=== PATIENT | male | born 1955 | race Caucasian/White ===

== ENCOUNTER 2019-08-26 11:51 | Inpatient (IN) | payer OTHER ==
[2019-08-26] MEDS ORDERED: Sodium Chloride 0.9% 10 ML Syringe FLUSH PRN ×3 (11:55→16:04)
[2019-08-26] MEDS ORDERED: Ondansetron 4 MG/2 ML SDV IVPUSH ONE (11:56)
[2019-08-26] MEDS ORDERED: Pantoprazole 40 MG Vial IVPUSH ONE (11:56)
[2019-08-26] MEDS ORDERED: Sodium Chloride 0.9% 1,000 ML IV SCH (12:00)
--- NOTE | 2019-08-26 12:03 | EDM.PDOC ---
ED HPI GENERAL MEDICAL PROBLEM - General Chief Complaint: Gastrointestinal Problem Stated Complaint: CHEST PAIN Time Seen by Provider: 08/26/19 11:54 Source of Information: Reports: Patient History Limitations: Reports: No Limitations - History of Present Illness INITIAL COMMENTS - FREE TEXT/NARRATIVE: Dashawn is a 64 year old male, hx of HTN, presents to the ED today with c/o vomiting and a burning sensation in his chest since last night, symptoms have continued this morning, now patient feels light headed. Denies any diarrhea or fever, passed a normal BM yesterday but complaints of feeling "constipated". No hx of abdominal surgery, distended on exam. Patient denies any heart hx other than his HTN. Patient has not taken any medications for his symptoms. He denies anything really making his symptoms better or worse. Patient denies any hematemesis. Patient denies any chest pressure or pain. Onset: Gradual (Last night around 1900) Lower Abdomen Pain Score (Numeric/FACES): 8 - Related Data Allergies Allergy/AdvReac Type Severity Reaction Status Date / Time No Known Allergies Allergy Verified 08/26/19 11:53 Home Meds: Home Meds Allopurinol [Zyloprim] 100 mg PO DAILY 08/26/19 [History] Levothyroxine 112 mcg PO ACBREAKFAST 08/26/19 [History] Lisinopril 5 mg PO DAILY 08/26/19 [History] metFORMIN [Glucophage] 500 mg PO BIDMEALS 08/26/19 [History] ED ROS GENERAL - Review of Systems Review Of Systems: ROS reveals no pertinent complaints other than HPI. ED EXAM, GI/ABD - Physical Exam Exam: See Below Exam Limited By: No Limitations General Appearance: Alert, Mild Distress, Obese Eyes: Bilateral: EOMI Nose: Normal Inspection Throat/Mouth: Normal Oropharynx Head: Atraumatic Neck: Supple Cardiovascular: Normal Peripheral Pulses, Regular Rate, Rhythm GI/Abdominal Exam: Normal Bowel Sounds, Non-Tender, Distended Back Exam: Normal Inspection Extremities: Normal Inspection Neurological: Alert, Oriented, CN II-XII Intact Skin Exam: Pallor Lymphatic: No Adenopathy EKG INTERPRETATION EKG Date: 08/26/19 Time: 12:03 Rhythm: NSR [place]: Normal P-Wave: Present QRS: Normal ST-T: Normal QT: Normal Comparison: NA - No Prior EKG Course - Vital Signs Last Recorded V/S: Last Vital Signs Temp 36.2 C 08/26/19 12:18 Pulse 100 08/26/19 12:52 Resp 20 08/26/19 12:52 BP 181/106 H 08/26/19 12:52 Pulse Ox 97 08/26/19 12:52 Dashawn is a 64 year old male, hx of HTN, Thyroid disease, gout, diabetes, presents to the ED today with c/o chest burning sensation and vomiting. Please refer to HPI and focused exam. Patient arrives here mildly hypertensive and borderline tachycardic. Patient is afebrile. Patient has abdominal distention on exam with tympany, abdomen non tender, not soft. Concern for obstruction, ? constipation related, patient denies any abdominal surgical hx. Informed nurse he had four "normal BM's" this morning. Patient overall poor historian. PIV established, patient given IV Zofran with minimal relief, NS started. Blood work with leukocytosis of 15.3 with left shift and GAP of 18.2. ALT and AST mildly elevated at 55 and 82, CRP elevated at 0.97. Lactic acid significantly elevated at 4.2, patient prophylactically started on Zosyn. Procalcitonin pending. Given burning sensation in chest, EKG and troponin obtained, both of which are unremarkable. Lipase WNL. CT of abdomen and pelvis obtained which does show an obstruction. [facility], [facility] with [facility], they are unable to accept patient for transfer due to lack of bed availability. NG tube placed by nursing staff, immediately 950 out of stool colored gastric secretions, patient feeling better, still draining, patient sleeping after some IV Ativan to help with ongoing nausea and NG tube placement. Dr. Burch, surgeon, notified of patient, will consult. I discussed patient with Dr. Mejia, he has accepted patient for admission. Patient updated on plan of care and is agreeable. - Orders/Labs/Meds Orders: Active Orders 24 hr Category Date Time Status EKG Documentation Completion [RC] ASDIRECTED Care 08/26/19 11:54 Active Peripheral IV Care [RC] . DIRECTED Care 08/26/19 11:55 Active PROCALCITONIN [CHEM] Stat Lab 08/26/19 14:14 Ordered Piperacillin/Tazobactam/Dext [Zosyn in Dextrose Iso- Med 08/26/19 14:00 Active Osmotic] 4.5 gm Premix Bag 1 bag IV ONETIME Sodium Chloride 0.9% [Normal Saline] 1,000 ml Med 08/26/19 12:00 Active IV ASDIRECTED Sodium Chloride 0.9% [Saline Flush] Med 08/26/19 11:55 Active 10 ml FLUSH ASDIRECTED PRN Sodium Chloride 0.9% [Saline Flush] Med 08/26/19 12:20 Active 10 ml FLUSH ONETIME PRN NG [Nasogastric Orogastric Tube Insertion] [OM.PC] Oth 08/26/19 13:09 Ordered Routine Peripheral IV Insertion Adult [OM.PC] Routine Oth 08/26/19 11:55 Ordered EKG 12 Lead [EK] Stat Ther 08/26/19 11:54 Ordered Medication Orders Sodium Chloride (Normal Saline) 1,000 mls @ 150 mls/hr IV ASDIRECTED HAWA Last Admin: 08/26/19 12:16 Dose: 150 mls/hr Piperacillin/Tazobactam/ (Dextrose 4.5 gm/ Premix) 100 mls @ 100 mls/hr IV ONETIME ONE Stop: 08/26/19 14:59 Last Admin: 08/26/19 13:58 Dose: 100 mls/hr Sodium Chloride (Saline Flush) 10 ml FLUSH ASDIRECTED PRN PRN Reason: Keep Vein Open Last Admin: 08/26/19 12:17 Dose: 10 ml Sodium Chloride (Saline Flush) 10 ml FLUSH ONETIME PRN PRN Reason: PER RADIOLOGY PROTOCOL Last Admin: 08/26/19 12:41 Dose: 10 ml Labs: Laboratory Tests 08/26/19 08/26/19 08/26/19 Range/Units 12:06 12:06 12:06 WBC 15.3 H (4.5-11.0) K/uL RBC 5.55 (4.30-5.90) M/uL Hgb 16.2 H (12.0-15.0) g/dL Hct 49.4 (40.0-54.0) % MCV 89 (80-98) fL MCH 29 (27-31) pg MCHC 33 (32-36) % Plt Count 437 H (150-400) K/uL Neut % (Auto) 87 H (36-66) % Lymph % (Auto) 8 L (24-44) % [place] % (Auto) 5 (2-6) % Eos % (Auto) 0 L (2-4) % Baso % (Auto) 0 (0-1) % Sodium 137 L (140-148) mmol/L Potassium 4.2 (3.6-5.2) mmol/L Chloride 98 L (100-108) mmol/L Carbon Dioxide 25 (21-32) mmol/L Anion Gap 18.2 H (5.0-14.0) mmol/L BUN 18 (7-18) mg/dL Creatinine 1.2 (0.8-1.3) mg/dL Est Cr Clr Drug Dosing 64.21 mL/min Estimated GFR (MDRD) > 60 (>60) Glucose 301 H (74-106) mg/dL Lactic Acid (0.4-2.0) mmol/L Calcium 9.4 (8.5-10.1) mg/dL Total Bilirubin 0.6 (0.2-1.0) mg/dL AST 55 H (15-37) U/L ALT 82 H (12-78) U/L Alkaline Phosphatase 105 (46-116) U/L Troponin I < 0.017 (0.000-0.056) ng/mL C-Reactive Protein 0.97 H (0.0-0.3) mg/dL Total Protein 7.8 (6.4-8.2) g/dL Albumin 3.9 (3.4-5.0) g/dL Globulin 3.9 H (2.3-3.5) g/dL Albumin/Globulin Ratio 1.0 L (1.2-2.2) Lipase 138 (73-393) U/L 08/26/19 Range/Units 12:36 WBC (4.5-11.0) K/uL RBC (4.30-5.90) M/uL Hgb (12.0-15.0) g/dL Hct (40.0-54.0) % MCV (80-98) fL MCH (27-31) pg MCHC (32-36) % Plt Count (150-400) K/uL Neut % (Auto) (36-66) % Lymph % (Auto) (24-44) % [place] % (Auto) (2-6) % Eos % (Auto) (2-4) % Baso % (Auto) (0-1) % Sodium (140-148) mmol/L Potassium (3.6-5.2) mmol/L Chloride (100-108) mmol/L Carbon Dioxide (21-32) mmol/L Anion Gap (5.0-14.0) mmol/L BUN (7-18) mg/dL Creatinine (0.8-1.3) mg/dL Est Cr Clr Drug Dosing mL/min Estimated GFR (MDRD) (>60) Glucose (74-106) mg/dL Lactic Acid 4.3 H (0.4-2.0) mmol/L Calcium (8.5-10.1) mg/dL Total Bilirubin (0.2-1.0) mg/dL AST (15-37) U/L ALT (12-78) U/L Alkaline Phosphatase (46-116) U/L Troponin I (0.000-0.056) ng/mL C-Reactive Protein (0.0-0.3) mg/dL Total Protein (6.4-8.2) g/dL Albumin (3.4-5.0) g/dL Globulin (2.3-3.5) g/dL Albumin/Globulin Ratio (1.2-2.2) Lipase (73-393) U/L Meds: Medications Generic Name Dose Route Start Last Admin Trade Name Freq PRN Reason Stop Dose Admin Sodium Chloride 1,000 mls @ 150 mls/hr 08/26/19 12:00 08/26/19 12:16 Normal Saline IV 150 mls/hr ASDIRECTED HAWA Administration Piperacillin/Tazobactam/ 100 mls @ 100 mls/hr 08/26/19 14:00 08/26/19 13:58 Dextrose 4.5 gm/ Premix IV 08/26/19 14:59 100 mls/hr ONETIME ONE Administration Sodium Chloride 10 ml 08/26/19 11:55 08/26/19 12:17 Saline Flush FLUSH 10 ml ASDIRECTED PRN Administration Keep Vein Open Sodium Chloride 10 ml 08/26/19 12:20 08/26/19 12:41 Saline Flush FLUSH 10 ml ONETIME PRN Administration PER RADIOLOGY PROTOCOL Discontinued Medications Generic Name Dose Route Start Last Admin Trade Name Freq PRN Reason Stop Dose Admin Sodium Chloride 85 mls @ 3 mls/sec 08/26/19 12:20 08/26/19 12:41 Normal Saline IV 08/26/19 12:21 3 mls/sec ONETIME ONE Administration Sodium Chloride 1,000 mls @ 999 mls/hr 08/26/19 13:08 08/26/19 13:13 Normal Saline IV 08/26/19 14:08 999 mls/hr .BOLUS ONE Administration Iopamidol 150 ml 08/26/19 12:20 08/26/19 12:41 Isovue-300 (61%) IV 08/26/19 12:21 150 ml ONETIME ONE Administration Lorazepam 1 mg 08/26/19 13:01 08/26/19 13:09 Ativan IVPUSH 08/26/19 13:02 1 mg ONETIME ONE Administration Ondansetron HCl 4 mg 08/26/19 11:56 08/26/19 12:13 Zofran IVPUSH 08/26/19 11:57 4 mg ONETIME ONE Administration Pantoprazole Sodium 40 mg 08/26/19 11:56 08/26/19 12:15 Protonix Iv IVPUSH 08/26/19 11:57 40 mg ONETIME ONE Administration Departure - Departure Time of Disposition: 14:30 Disposition: Admitted As Inpatient 66 Condition: Fair Clinical Impression: Small bowel obstruction - Discharge Information Referrals: PCP,None [Primary Care Provider] - Forms: ED Department Discharge - My Orders Last 24 Hours: My Active Orders 08/26/19 11:54 EKG Documentation Completion [RC] ASDIRECTED EKG 12 Lead [EK] Stat 08/26/19 11:55 Peripheral IV Care [RC] . DIRECTED Sodium Chloride 0.9% [Saline Flush] 10 ml FLUSH ASDIRECTED PRN Peripheral IV Insertion Adult [OM.PC] Routine 08/26/19 12:00 Sodium Chloride 0.9% [Normal Saline] 1,000 ml IV ASDIRECTED 08/26/19 12:20 Sodium Chloride 0.9% [Saline Flush] 10 ml FLUSH ONETIME PRN 08/26/19 13:09 NG [Nasogastric Orogastric Tube Insertion] [OM.PC] Routine 08/26/19 14:00 Piperacillin/Tazobactam/Dext [Zosyn in Dextrose Iso-Osmotic] 4.5 gm Premix Bag 1 bag IV ONETIME 08/26/19 14:14 PROCALCITONIN [CHEM] Stat - Assessment/Plan Last 24 Hours: My Active Orders 08/26/19 11:54 EKG Documentation Completion [RC] ASDIRECTED EKG 12 Lead [EK] Stat 08/26/19 11:55 Peripheral IV Care [RC] . DIRECTED Sodium Chloride 0.9% [Saline Flush] 10 ml FLUSH ASDIRECTED PRN Peripheral IV Insertion Adult [OM.PC] Routine 08/26/19 12:00 Sodium Chloride 0.9% [Normal Saline] 1,000 ml IV ASDIRECTED 08/26/19 12:20 Sodium Chloride 0.9% [Saline Flush] 10 ml FLUSH ONETIME PRN 08/26/19 13:09 NG [Nasogastric Orogastric Tube Insertion] [OM.PC] Routine 08/26/19 14:00 Piperacillin/Tazobactam/Dext [Zosyn in Dextrose Iso-Osmotic] 4.5 gm Premix Bag 1 bag IV ONETIME 08/26/19 14:14 PROCALCITONIN [CHEM] Stat
[2019-08-26] MEDS ORDERED: Iopamidol 500 ML BOTTLE IV ONE (12:20)
[2019-08-26] MEDS ORDERED: LORazepam 2 MG/ML SDV IVPUSH ONE (13:01)
[2019-08-26] MEDS ORDERED: Sodium Chloride 0.9% 1,000 ML IV ONE (13:08)
[2019-08-26] MEDS ORDERED: Piperacillin/Tazobactam 4.5 GM in Sodium Chloride 0.9% 100 ML IV ONE (13:08)
--- NOTE | 2019-08-26 13:27 | CRLCT ---
INDICATION: Abdominal distention and vomiting TECHNIQUE: CT abdomen and pelvis acquired with 150 cc Isovue 300 IV contrast. COMPARISON: None FINDINGS: Lower chest: Small hiatal hernia. Circumferential wall thickening of the esophagus just proximal to the hernia. Liver: Hepatic steatosis. Spleen: Unremarkable. Pancreas: Unremarkable. Gallbladder and bile ducts: Unremarkable. Adrenal glands: Unremarkable. Kidneys: Unremarkable. GI tract: Moderate distention of the stomach with fluid. Multiple fluid and air-filled loops of small bowel reach a maximum diameter of 3.9 cm. Small bowel feces sign seen immediately to a transition point in the right lower quadrant, image 28-33 series 3. Small amount of free fluid in the mesentery. No extraluminal air or pneumatosis. The appendix is not visualized. Mild colonic diverticulosis. Vascular structures: Mild atherosclerotic disease with 3.2 x 3.0 cm infrarenal abdominal aortic aneurysm. Lymph nodes: Unremarkable. Miscellaneous: Small fat containing left inguinal hernia. No free air or significant free fluid. Pelvic Organs: Unremarkable. Bones: Unremarkable for age. IMPRESSION: Small-bowel obstruction with transition point in the right lower quadrant. Circumferential wall thickening of the esophagus just proximal to a small hiatal hernia. Consider EGD for further evaluation. Hepatic steatosis. 3.2 cm infrarenal abdominal aortic aneurysm. Mild colonic diverticulosis. Please note that all CT scans at this facility use dose modulation, iterative reconstruction, and/or weight-based dosing when appropriate to reduce radiation dose to as low as reasonably achievable. Dictated by Steffi Cleveland MD @ Aug 26 2019 1:13PM Signed by Dr. Steffi [place] @ Aug 26 2019 1:25PM
[2019-08-26] MEDS ORDERED: Piperacillin/Tazobactam/Dext 4.5 GM in Premix Bag 1 BAG IV ONE (14:00)
--- NOTE | 2019-08-26 15:45 | PCM.HP.2 ---
H&P History of Present Illness - General Date of Service: 08/26/19 Admit Problem/Dx: Admission Diagnosis/Problem Admission Diagnosis/Problem Nausea and vomiting Source of Information: Patient, Provider, RN Notes Reviewed History Limitations: Reports: No Limitations - History of Present Illness Initial Comments - Free Text/Narative: Mr. Grimes is a 64-year-old gentleman who was admitted through the emergency department with lower chest abdominal pain, nausea, and vomiting, secondary to small bowel obstruction. He began to feel ill 2 days prior to admission with pain, nausea, and vomiting. Symptoms progressed over the next 2 days, with minimal oral intake. He presented to the emergency department for further evaluation. White blood cell count is elevated and he has no elevation in lactic acid level. CT scan of the abdomen pelvis shows multiple air-fluid levels , small bowel obstruction with a transition point in the right lower quadrant. He has never had difficulty with bowel obstruction in the past and denies any previous history of abdominal surgery. He denies alcohol use but does report daily marijuana use. Lower Abdomen Pain Score (Numeric/FACES): 8 - Related Data Allergies/Adverse Reactions: Allergies Allergy/AdvReac Type Severity Reaction Status Date / Time No Known Allergies Allergy Verified 08/26/19 11:53 Home Medications: Home Meds Allopurinol [Zyloprim] 100 mg PO DAILY 08/26/19 [History] Levothyroxine 112 mcg PO ACBREAKFAST 08/26/19 [History] Lisinopril 5 mg PO DAILY 08/26/19 [History] metFORMIN [Glucophage] 500 mg PO BIDMEALS 08/26/19 [History] Past Medical History HEENT History: Reports: Impaired Vision Cardiovascular History: Reports: Hypertension Respiratory History: Reports: Asthma, Other (See Below) Other Respiratory History: uses inhaler unsure why Genitourinary History: Reports: Other (See Below) Other Genitourinary History: urgency Musculoskeletal History: Reports: Back Pain, Chronic, Gout Neurological History: Reports: None Endocrine/Metabolic History: Reports: Hypothyroidism, Obesity/BMI 30+ - Past Surgical History Neurological Surgical History: Reports: Lumbar Spine Musculoskeletal Surgical History: Reports: Shoulder Replacement Social & Family History - Tobacco Use Smoking Status *Q: Former Smoker Used Tobacco, but Quit: Yes Month/Year Tobacco Last Used: 1975 Second Hand Smoke Exposure: No - Caffeine Use Caffeine Use: Reports: Tea - Recreational Drug Use Recreational Drug Use: Yes Drug Use in Last 12 Months: Yes Recreational Drug Type: Reports: Marijuana/Hashish Recreational Drug Use Frequency: Daily H&P Review of Systems - Review of Systems: Review Of Systems: See Below General: Reports: Diaphoresis, Decreased Appetite. Denies: Fever, Chills HEENT: Reports: No Symptoms Pulmonary: Reports: No Symptoms Cardiovascular: Reports: No Symptoms Gastrointestinal: Reports: Abdominal Pain, Decreased Appetite, Distension, Nausea, Vomiting. Denies: Constipation, Diarrhea, Difficulty Swallowing, Hematemesis, Hematochezia Genitourinary: Reports: No Symptoms Musculoskeletal: Reports: No Symptoms Skin: Reports: No Symptoms Psychiatric: Reports: No Symptoms Neurological: Reports: No Symptoms Hematologic/Lymphatic: Reports: No Symptoms Immunologic: Reports: No Symptoms Exam - Exam Exam: See Below - Vital Signs Vital Signs: Last Vital Signs Temp 97.2 F 08/26/19 12:18 Pulse 105 H 08/26/19 14:52 Resp 21 H 08/26/19 14:52 BP 157/82 H 08/26/19 14:52 Pulse Ox 97 08/26/19 12:52 Weight: 230 lb - Exam Quality Assessment: DVT Prophylaxis General: Alert, Oriented, Cooperative, Moderate Distress HEENT: Conjunctiva Clear, Hearing Intact, Normal Nasal Septum, Posterior Pharynx Clear, Pupils Equal. No: Mucosa Moist & [place] Neck: Supple, Trachea Midline, +2 Carotid Pulse wo Bruit Lungs: Clear to Auscultation, Normal Respiratory Effort Cardiovascular: Regular Rate, Regular Rhythm, Normal S1, Normal S2. No: Systolic Murmur, Diastolic Murmur GI/Abdominal Exam: Soft, No Organomegaly, Distended, Tender. No: Guarding, Rigid, Rebound Extremities: Non-Tender, No Pedal Edema Skin: Warm, Dry, Intact Neurological: Cranial Nerves Intact, Strength Equal Bilateral, Normal Speech, Normal Tone, Sensation Intact. No: Focal Deficit Neuro Extensive - Mental Status: Alert, Oriented x3, Normal Mood/Affect, Normal Cognition, Memory Intact - Patient Data Lab Results Last 24 hrs: Laboratory Results - last 24 hr 08/26/19 08/26/19 08/26/19 Range/Units 12:06 12:06 12:06 WBC 15.3 H (4.5-11.0) K/uL RBC 5.55 (4.30-5.90) M/uL Hgb 16.2 H (12.0-15.0) g/dL Hct 49.4 (40.0-54.0) % MCV 89 (80-98) fL MCH 29 (27-31) pg MCHC 33 (32-36) % Plt Count 437 H (150-400) K/uL Neut % (Auto) 87 H (36-66) % Lymph % (Auto) 8 L (24-44) % [place] % (Auto) 5 (2-6) % Eos % (Auto) 0 L (2-4) % Baso % (Auto) 0 (0-1) % Sodium 137 L (140-148) mmol/L Potassium 4.2 (3.6-5.2) mmol/L Chloride 98 L (100-108) mmol/L Carbon Dioxide 25 (21-32) mmol/L Anion Gap 18.2 H (5.0-14.0) mmol/L BUN 18 (7-18) mg/dL Creatinine 1.2 (0.8-1.3) mg/dL Est Cr Clr Drug Dosing 64.21 mL/min Estimated GFR (MDRD) > 60 (>60) Glucose 301 H (74-106) mg/dL Lactic Acid (0.4-2.0) mmol/L Calcium 9.4 (8.5-10.1) mg/dL Total Bilirubin 0.6 (0.2-1.0) mg/dL AST 55 H (15-37) U/L ALT 82 H (12-78) U/L Alkaline Phosphatase 105 (46-116) U/L Troponin I < 0.017 (0.000-0.056) ng/mL C-Reactive Protein 0.97 H (0.0-0.3) mg/dL Total Protein 7.8 (6.4-8.2) g/dL Albumin 3.9 (3.4-5.0) g/dL Globulin 3.9 H (2.3-3.5) g/dL Albumin/Globulin Ratio 1.0 L (1.2-2.2) Lipase 138 (73-393) U/L Procalcitonin ng/mL 08/26/19 08/26/19 Range/Units 12:36 14:14 WBC (4.5-11.0) K/uL RBC (4.30-5.90) M/uL Hgb (12.0-15.0) g/dL Hct (40.0-54.0) % MCV (80-98) fL MCH (27-31) pg MCHC (32-36) % Plt Count (150-400) K/uL Neut % (Auto) (36-66) % Lymph % (Auto) (24-44) % [place] % (Auto) (2-6) % Eos % (Auto) (2-4) % Baso % (Auto) (0-1) % Sodium (140-148) mmol/L Potassium (3.6-5.2) mmol/L Chloride (100-108) mmol/L Carbon Dioxide (21-32) mmol/L Anion Gap (5.0-14.0) mmol/L BUN (7-18) mg/dL Creatinine (0.8-1.3) mg/dL Est Cr Clr Drug Dosing mL/min Estimated GFR (MDRD) (>60) Glucose (74-106) mg/dL Lactic Acid 4.3 H (0.4-2.0) mmol/L Calcium (8.5-10.1) mg/dL Total Bilirubin (0.2-1.0) mg/dL AST (15-37) U/L ALT (12-78) U/L Alkaline Phosphatase (46-116) U/L Troponin I (0.000-0.056) ng/mL C-Reactive Protein (0.0-0.3) mg/dL Total Protein (6.4-8.2) g/dL Albumin (3.4-5.0) g/dL Globulin (2.3-3.5) g/dL Albumin/Globulin Ratio (1.2-2.2) Lipase (73-393) U/L Procalcitonin 0.09 ng/mL Result Diagrams: 08/26/19 12:06 08/26/19 12:06 *Q Meaningful Use (ADM) - VTE Risk Assess *Q Each Risk Factor Represents 1 Point: Obesity ( BMI > 25 kg/m2) Total Score 1 Point Risk Factors: 1 Each Risk Factor Represents 2 Points: Age 60 - 74 Years Total Score 2 Point Risk Factors: 2 Each Risk Factor Represents 3 Points: None Total Score 3 Point Risk Factors: 0 Each Risk Factor Represents 5 Points: None Total Score 5 Point Risk Factors: 0 Venous Thromboembolism Risk Factor Score *Q: 3 Problem List Initiated/Reviewed/Updated: Yes Orders Last 24hrs: Active Orders 24 hr Category Date Time Status Patient Status Manage Transfer [TRANSFER] Routine ADT 08/26/19 15:02 Ordered EKG Documentation Completion [RC] ASDIRECTED Care 08/26/19 11:54 Active Peripheral IV Care [RC] . DIRECTED Care 08/26/19 11:55 Active Sodium Chloride 0.9% [Normal Saline] 1,000 ml Med 08/26/19 12:00 Active IV ASDIRECTED Sodium Chloride 0.9% [Saline Flush] Med 08/26/19 11:55 Active 10 ml FLUSH ASDIRECTED PRN Sodium Chloride 0.9% [Saline Flush] Med 08/26/19 12:20 Active 10 ml FLUSH ONETIME PRN NG [Nasogastric Orogastric Tube Insertion] [OM.PC] Oth 08/26/19 13:09 Ordered Routine Peripheral IV Insertion Adult [OM.PC] Routine Oth 08/26/19 11:55 Ordered Resuscitation Status Routine Resus Stat 08/26/19 15:03 Ordered EKG 12 Lead [EK] Stat Ther 08/26/19 11:54 Ordered Medication Orders Sodium Chloride (Normal Saline) 1,000 mls @ 150 mls/hr IV ASDIRECTED HAWA Last Admin: 08/26/19 12:16 Dose: 150 mls/hr Sodium Chloride (Saline Flush) 10 ml FLUSH ASDIRECTED PRN PRN Reason: Keep Vein Open Last Admin: 08/26/19 12:17 Dose: 10 ml Sodium Chloride (Saline Flush) 10 ml FLUSH ONETIME PRN PRN Reason: PER RADIOLOGY PROTOCOL Last Admin: 08/26/19 12:41 Dose: 10 ml Assessment/Plan Comment:: ASSESSMENT AND PLAN SMALL BOWEL OBSTRUCTION-no history of previous abdominal surgery or bowel obstructions. Symptoms present for the last 2 days. Evidence of obstruction identified on CT scan with multiple air-fluid levels and transition point in the right lower quadrant area. -Nothing by mouth -IV fluids for hydration -NG tube to low intermittent suction -abdominal flat plate and upright x-ray in a.m. -Medication for nausea and pain as needed -Surgical consult Dr. Butler TYPE 2 DIABETES MELLITUS -Hold metformin -QID glucometers -Low-dose sliding scale Humalog MAINTENANCE ISSUES -DVT prophylaxis; SCUDs, hold on anticoagulation because of potential need for surgery -GI prophylaxis; Protonix 40 mg IV daily -Camarena catheter; not indicated -Nutrition; nothing by mouth -Nicotine dependence; not required CODE STATUS-FULL CODE ADMISSION STATUS-patient will be admitted to inpatient status, expect at least a 2 night hospital stay for evaluation and management of problems as outlined above. At the time of this admission I do not reasonably expected evaluation and management of this problem will require more than a 96 hour hospital stay. DISPOSITION-anticipate discharge to home after the hospital stay. PRIMARY CARE PROVIDER- - Mortality Measure Prognosis:: Good
[2019-08-26] MEDS ORDERED: 50% Dextrose in Water 50 ML Syringe IV PRN (16:04)
[2019-08-26] MEDS ORDERED: Ondansetron 4 MG/2 ML SDV IV PRN (16:04)
[2019-08-26] MEDS ORDERED: Glucose Gel 15 GM in 37.5 GM Tube PO PRN (16:04)
--- NOTE | 2019-08-26 16:48 | PCM.CONS ---
H&P History of Present Illness - General Date of Service: 08/26/19 Admit Problem/Dx: Admission Diagnosis/Problem Admission Diagnosis/Problem Nausea and vomiting Source of Information: Patient, Provider History Limitations: Reports: No Limitations - History of Present Illness Initial Comments - Free Text/Narative: This 64 year old white male complains of two days of upper abdominal/lower chest pain with nausea and vomiting. He says the pain was constant. He denies flatus but had three bowel movement today. He presented to the ER and an NG tube was placed which releaved his discomfort. A CT of his abdomen and pelvis is consistent with a small bowel obstruction with the transition point in his right lower quadrant. He denies a history of prior abdominal surgery. Currently he feels fine and denies abdominal pain. Onset of Symptoms: Reports: Other (Two days ago) Symptom Onset Date: 08/24/19 Duration of Symptoms: Reports: Day(s): Location: Reports: Abdomen Quality: Reports: Burning, Pressure Severity: Severe Improves with: Reports: Other (NG tube) Worsens with: Reports: None Associated Symptoms: Reports: No Other Symptoms Lower Abdomen Pain Score (Numeric/FACES): 8 - Related Data Allergies/Adverse Reactions: Allergies Allergy/AdvReac Type Severity Reaction Status Date / Time No Known Allergies Allergy Verified 08/26/19 11:53 Home Medications: Home Meds Allopurinol [Zyloprim] 100 mg PO DAILY 08/26/19 [History] Levothyroxine 112 mcg PO ACBREAKFAST 08/26/19 [History] Lisinopril 5 mg PO DAILY 08/26/19 [History] metFORMIN [Glucophage] 500 mg PO BIDMEALS 08/26/19 [History] Past Medical History HEENT History: Reports: Impaired Vision Cardiovascular History: Reports: Hypertension Respiratory History: Reports: Asthma, Other (See Below) Other Respiratory History: uses inhaler unsure why Genitourinary History: Reports: Other (See Below) Other Genitourinary History: urgency Musculoskeletal History: Reports: Back Pain, Chronic, Gout Neurological History: Reports: None Endocrine/Metabolic History: Reports: Hypothyroidism, Obesity/BMI 30+ - Past Surgical History Neurological Surgical History: Reports: Lumbar Spine Musculoskeletal Surgical History: Reports: Shoulder Replacement Social & Family History - Tobacco Use Smoking Status *Q: Former Smoker Used Tobacco, but Quit: Yes Month/Year Tobacco Last Used: 1975 Second Hand Smoke Exposure: No - Caffeine Use Caffeine Use: Reports: Tea - Recreational Drug Use Recreational Drug Use: Yes Drug Use in Last 12 Months: Yes Recreational Drug Type: Reports: Marijuana/Hashish Recreational Drug Use Frequency: Daily H&P Review of Systems - Review of Systems: Review Of Systems: See Below General: Reports: No Symptoms HEENT: Reports: No Symptoms Pulmonary: Reports: No Symptoms Cardiovascular: Reports: No Symptoms Gastrointestinal: Reports: Abdominal Pain (Resolved. ), Constipation, Distension , Nausea (Resolved), Vomiting (Resolved) Genitourinary: Reports: No Symptoms Musculoskeletal: Reports: No Symptoms Skin: Reports: No Symptoms Psychiatric: Reports: No Symptoms Neurological: Reports: No Symptoms Hematologic/Lymphatic: Reports: No Symptoms Immunologic: Reports: No Symptoms Exam - Exam Exam: See Below - Vital Signs Vital Signs: Last Vital Signs Temp 99.6 F 08/26/19 16:20 Pulse 105 H 08/26/19 16:20 Resp 20 08/26/19 16:20 BP 177/100 H 08/26/19 16:20 Pulse Ox 96 08/26/19 16:20 Weight: 230 lb - Exam General: Alert, Oriented, Cooperative. No: Mild Distress, Moderate Distress, Severe Distress Lungs: Clear to Auscultation Cardiovascular: Regular Rate, Regular Rhythm GI/Abdominal Exam: Normal Bowel Sounds, Soft, Non-Tender, Distended. No: Guarding, Rigid, Rebound Extremities: Normal Inspection Skin: Warm, Dry, Intact Neuro Extensive - Mental Status: Alert, Oriented x3, Normal Mood/Affect Psychiatric: Alert, Normal Affect, Normal Mood - Patient Data Lab Results Last 24 hrs: Laboratory Results - last 24 hr 08/26/19 08/26/19 08/26/19 Range/Units 12:06 12:06 12:06 WBC 15.3 H (4.5-11.0) K/uL RBC 5.55 (4.30-5.90) M/uL Hgb 16.2 H (12.0-15.0) g/dL Hct 49.4 (40.0-54.0) % MCV 89 (80-98) fL MCH 29 (27-31) pg MCHC 33 (32-36) % Plt Count 437 H (150-400) K/uL Neut % (Auto) 87 H (36-66) % Lymph % (Auto) 8 L (24-44) % [place] % (Auto) 5 (2-6) % Eos % (Auto) 0 L (2-4) % Baso % (Auto) 0 (0-1) % Sodium 137 L (140-148) mmol/L Potassium 4.2 (3.6-5.2) mmol/L Chloride 98 L (100-108) mmol/L Carbon Dioxide 25 (21-32) mmol/L Anion Gap 18.2 H (5.0-14.0) mmol/L BUN 18 (7-18) mg/dL Creatinine 1.2 (0.8-1.3) mg/dL Est Cr Clr Drug Dosing 64.21 mL/min Estimated GFR (MDRD) > 60 (>60) Glucose 301 H (74-106) mg/dL Lactic Acid (0.4-2.0) mmol/L Calcium 9.4 (8.5-10.1) mg/dL Total Bilirubin 0.6 (0.2-1.0) mg/dL AST 55 H (15-37) U/L ALT 82 H (12-78) U/L Alkaline Phosphatase 105 (46-116) U/L Troponin I < 0.017 (0.000-0.056) ng/mL C-Reactive Protein 0.97 H (0.0-0.3) mg/dL Total Protein 7.8 (6.4-8.2) g/dL Albumin 3.9 (3.4-5.0) g/dL Globulin 3.9 H (2.3-3.5) g/dL Albumin/Globulin Ratio 1.0 L (1.2-2.2) Lipase 138 (73-393) U/L Procalcitonin ng/mL 08/26/19 08/26/19 Range/Units 12:36 14:14 WBC (4.5-11.0) K/uL RBC (4.30-5.90) M/uL Hgb (12.0-15.0) g/dL Hct (40.0-54.0) % MCV (80-98) fL MCH (27-31) pg MCHC (32-36) % Plt Count (150-400) K/uL Neut % (Auto) (36-66) % Lymph % (Auto) (24-44) % [place] % (Auto) (2-6) % Eos % (Auto) (2-4) % Baso % (Auto) (0-1) % Sodium (140-148) mmol/L Potassium (3.6-5.2) mmol/L Chloride (100-108) mmol/L Carbon Dioxide (21-32) mmol/L Anion Gap (5.0-14.0) mmol/L BUN (7-18) mg/dL Creatinine (0.8-1.3) mg/dL Est Cr Clr Drug Dosing mL/min Estimated GFR (MDRD) (>60) Glucose (74-106) mg/dL Lactic Acid 4.3 H (0.4-2.0) mmol/L Calcium (8.5-10.1) mg/dL Total Bilirubin (0.2-1.0) mg/dL AST (15-37) U/L ALT (12-78) U/L Alkaline Phosphatase (46-116) U/L Troponin I (0.000-0.056) ng/mL C-Reactive Protein (0.0-0.3) mg/dL Total Protein (6.4-8.2) g/dL Albumin (3.4-5.0) g/dL Globulin (2.3-3.5) g/dL Albumin/Globulin Ratio (1.2-2.2) Lipase (73-393) U/L Procalcitonin 0.09 ng/mL Result Diagrams: 08/26/19 12:06 08/26/19 12:06 Consult PN Assessment/Plan (1) Small bowel obstruction SNOMED Code(s): 024258724 Code(s): K56.609 - UNSP INTESTNL OBST, UNSP TO PARTIAL VERSUS COMPLETE OBST Current Visit: Yes Problem List Initiated/Reviewed/Updated: Yes My Orders Last 24 Hours: Resuscitation. Flat/up right abdominal films in the morning and proceed from there. Plan: Resuscitate. Flat/up right abdominal films in the morning and go from there.
[2019-08-26] MEDS: Sodium Chloride 0.9% 1,000 ML IV SCH (17:20)
[2019-08-26] MEDS: Pantoprazole 40 MG Vial IVPUSH SCH (17:23)
[2019-08-26] MEDS: Insulin Lispro 100 Unit/ML 3 ML KwikPen SUBCUT SCH ×2 (18:32→21:07)
[2019-08-27] MEDS: Sodium Chloride 0.9% 1,000 ML IV SCH ×2 (00:06→07:35)
[2019-08-27] MEDS ORDERED: cefTRIAXone 1 GM in Sodium Chloride 0.9% 50 ML IV SCH (02:30)
[2019-08-27] MEDS: Acetaminophen 325 MG Tab PO PRN ×2 (02:42→21:23)
--- NOTE | 2019-08-27 05:55 | CRLCR ---
INDICATION: Followup small bowel obstruction TECHNIQUE: Abdominal radiograph 4 views COMPARISON: CT 08/26/2019 FINDINGS: Bowel: Air-filled dilated small bowel loops present in the mid abdomen, not significantly changed from prior exam and remain suspicious for small bowel obstruction. NG tube present with the tip just beyond the GE junction and side port in the distal esophagus. Soft tissue: No evidence of pneumoperitoneum present. No suspicious calcifications noted. Bone: Unremarkable for age. IMPRESSIONS: 1. NG tube present with the tip just beyond the GE junction and side port in the distal esophagus. 2. Air-filled dilated small bowel loops present in the mid abdomen, not significantly changed from prior exam and remain suspicious for small bowel obstruction. Dictated by Herve Whitney MD @ 08/27/2019 5:54:11 AM Dictated by: Herve Whitney MD @ 08/27/2019 05:54:14 (Electronically Signed)
--- NOTE | 2019-08-27 05:57 | CRLCR ---
INDICATION: Fever, cough TECHNIQUE: Chest radiograph 2 views COMPARISON: None FINDINGS: Mediastinum: The mediastinum is normal in appearance. The heart silhouette is normal in size and morphology. Lung: Both lungs are unremarkable in appearance. No sign of pleural effusion seen. No pneumothorax is identified. Bone and Soft tissue: Unremarkable for age. IMPRESSION: 1. No acute cardiopulmonary disease is seen. Dictated by: Herve Whitney MD @ 08/27/2019 05:54:29 (Electronically Signed)
--- NOTE | 2019-08-27 06:58 | PCM.SN ---
- Free Text/Narrative Note: Time 02:15 call from [address] [place] [address] s: new onset fever -cough o: temp 38.7-116-20 B/P 155/87 oxygen sat 93% A:fever >101 p: Rocephin 1 gram IV now, blood cultures x2, chest x-ray in am continue present plan of care.
[2019-08-27] MEDS: Insulin Lispro 100 Unit/ML 3 ML KwikPen SUBCUT SCH ×4 (07:35→21:21)
[2019-08-27] MEDS: Lactobacillus Rhamnosus GG (Probiotic) Cap PO SCH ×4 (09:25→21:21)
--- NOTE | 2019-08-27 10:10 | PCM.CONSN ---
- General Info Date of Service: 08/27/19 Admission Dx/Problem (Free Text): Admission Diagnosis/Problem Admission Diagnosis/Problem Nausea and vomiting Functional Status: Reports: Pain Controlled, Ambulating, Urinating, New Symptoms (He feels fine now and refuses surgery at the present time. ) - Review of Systems General: Reports: No Symptoms HEENT: Reports: No Symptoms Pulmonary: Reports: No Symptoms Cardiovascular: Reports: No Symptoms Gastrointestinal: Reports: No Symptoms, Flatus, Other (Had large BM. ). Denies : Abdominal Pain, Nausea, Vomiting Genitourinary: Reports: No Symptoms Musculoskeletal: Reports: No Symptoms Skin: Reports: No Symptoms Neurological: Reports: No Symptoms Psychiatric: Reports: No Symptoms - Patient Data Vitals - Most Recent: Last Vital Signs Temp 98.8 F 08/27/19 07:35 Pulse 93 08/27/19 07:35 Resp 18 08/27/19 07:35 BP 138/70 08/27/19 07:35 Pulse Ox 97 08/27/19 07:35 Weight - Most Recent: 230 lb I&O - Last 24 Hours: Intake & Output 08/26/19 08/27/19 08/27/19 22:59 06:59 14:59 Intake Total 153 1317 Output Total 850 890 100 Balance -697 427 -100 Lab Results Last 24 Hours: Laboratory Results - last 24 hr 08/26/19 08/26/19 08/26/19 Range/Units 12:06 12:06 12:06 WBC 15.3 H (4.5-11.0) K/uL RBC 5.55 (4.30-5.90) M/uL Hgb 16.2 H (12.0-15.0) g/dL Hct 49.4 (40.0-54.0) % MCV 89 (80-98) fL MCH 29 (27-31) pg MCHC 33 (32-36) % Plt Count 437 H (150-400) K/uL Neut % (Auto) 87 H (36-66) % Lymph % (Auto) 8 L (24-44) % [place] % (Auto) 5 (2-6) % Eos % (Auto) 0 L (2-4) % Baso % (Auto) 0 (0-1) % Sodium 137 L (140-148) mmol/L Potassium 4.2 (3.6-5.2) mmol/L Chloride 98 L (100-108) mmol/L Carbon Dioxide 25 (21-32) mmol/L Anion Gap 18.2 H (5.0-14.0) mmol/L BUN 18 (7-18) mg/dL Creatinine 1.2 (0.8-1.3) mg/dL Est Cr Clr Drug Dosing 64.21 mL/min Estimated GFR (MDRD) > 60 (>60) Glucose 301 H (74-106) mg/dL Lactic Acid (0.4-2.0) mmol/L Calcium 9.4 (8.5-10.1) mg/dL Magnesium (1.8-2.4) mg/dL Total Bilirubin 0.6 (0.2-1.0) mg/dL AST 55 H (15-37) U/L ALT 82 H (12-78) U/L Alkaline Phosphatase 105 (46-116) U/L Troponin I < 0.017 (0.000-0.056) ng/mL C-Reactive Protein 0.97 H (0.0-0.3) mg/dL Total Protein 7.8 (6.4-8.2) g/dL Albumin 3.9 (3.4-5.0) g/dL Globulin 3.9 H (2.3-3.5) g/dL Albumin/Globulin Ratio 1.0 L (1.2-2.2) Lipase 138 (73-393) U/L Procalcitonin ng/mL 08/26/19 08/26/19 08/27/19 Range/Units 12:36 14:14 02:40 WBC 16.2 H (4.5-11.0) K/uL RBC 5.21 (4.30-5.90) M/uL Hgb 15.1 H (12.0-15.0) g/dL Hct 46.6 (40.0-54.0) % MCV 89 (80-98) fL MCH 29 (27-31) pg MCHC 32 (32-36) % Plt Count 375 (150-400) K/uL Neut % (Auto) (36-66) % Lymph % (Auto) (24-44) % [place] % (Auto) (2-6) % Eos % (Auto) (2-4) % Baso % (Auto) (0-1) % Sodium (140-148) mmol/L Potassium (3.6-5.2) mmol/L Chloride (100-108) mmol/L Carbon Dioxide (21-32) mmol/L Anion Gap (5.0-14.0) mmol/L BUN (7-18) mg/dL Creatinine (0.8-1.3) mg/dL Est Cr Clr Drug Dosing mL/min Estimated GFR (MDRD) (>60) Glucose (74-106) mg/dL Lactic Acid 4.3 H (0.4-2.0) mmol/L Calcium (8.5-10.1) mg/dL Magnesium (1.8-2.4) mg/dL Total Bilirubin (0.2-1.0) mg/dL AST (15-37) U/L ALT (12-78) U/L Alkaline Phosphatase (46-116) U/L Troponin I (0.000-0.056) ng/mL C-Reactive Protein (0.0-0.3) mg/dL Total Protein (6.4-8.2) g/dL Albumin (3.4-5.0) g/dL Globulin (2.3-3.5) g/dL Albumin/Globulin Ratio (1.2-2.2) Lipase (73-393) U/L Procalcitonin 0.09 ng/mL 08/27/19 08/27/19 Range/Units 02:40 08:34 WBC (4.5-11.0) K/uL RBC (4.30-5.90) M/uL Hgb (12.0-15.0) g/dL Hct (40.0-54.0) % MCV (80-98) fL MCH (27-31) pg MCHC (32-36) % Plt Count (150-400) K/uL Neut % (Auto) (36-66) % Lymph % (Auto) (24-44) % [place] % (Auto) (2-6) % Eos % (Auto) (2-4) % Baso % (Auto) (0-1) % Sodium 139 L (140-148) mmol/L Potassium 4.0 (3.6-5.2) mmol/L Chloride 103 (100-108) mmol/L Carbon Dioxide 24 (21-32) mmol/L Anion Gap 16.0 H (5.0-14.0) mmol/L BUN 15 (7-18) mg/dL Creatinine 1.0 (0.8-1.3) mg/dL Est Cr Clr Drug Dosing 77.24 mL/min Estimated GFR (MDRD) > 60 (>60) Glucose 177 H (74-106) mg/dL Lactic Acid 3.6 H (0.4-2.0) mmol/L Calcium 8.1 L (8.5-10.1) mg/dL Magnesium 1.8 (1.8-2.4) mg/dL Total Bilirubin (0.2-1.0) mg/dL AST (15-37) U/L ALT (12-78) U/L Alkaline Phosphatase (46-116) U/L Troponin I (0.000-0.056) ng/mL C-Reactive Protein (0.0-0.3) mg/dL Total Protein (6.4-8.2) g/dL Albumin (3.4-5.0) g/dL Globulin (2.3-3.5) g/dL Albumin/Globulin Ratio (1.2-2.2) Lipase (73-393) U/L Procalcitonin ng/mL Med Orders - Current: Current Medications Acetaminophen (Tylenol) 650 mg PO Q4H PRN PRN Reason: Fever Last Admin: 08/27/19 02:42 Dose: 650 mg Dextrose (Glutose 15) 15 gm PO ONETIME PRN PRN Reason: Hypoglycemia Dextrose/Water (Dextrose 50% In Water) 50 ml IV ONETIME PRN PRN Reason: Hypoglycemia Hydromorphone HCl (Dilaudid) 0.5 mg IVPUSH Q2H PRN PRN Reason: Pain Sodium Chloride (Normal Saline) 1,000 mls @ 125 mls/hr IV ASDIRECTED [facility] Last Admin: 08/27/19 07:35 Dose: 125 mls/hr Ampicillin Sodium/Sulbactam (Sodium 1.5 gm/ Sodium Chloride) 50 mls @ 100 mls/ hr IV Q6HR [facility] Aztreonam 1 gm/ Sodium (Chloride) 50 mls @ 100 mls/hr IV Q8H [facility] Last Admin: 08/27/19 09:25 Dose: 100 mls/hr Insulin Human Lispro (Humalog) 0 unit SUBCUT QIDACANDBED [facility]; Protocol Last Admin: 08/27/19 07:35 Dose: 1 units Lactobacillus Rhamnosus (Culturelle) 1 cap PO BID [facility] Last Admin: 08/27/19 09:25 Dose: 1 cap Ondansetron HCl (Zofran) 4 mg IV Q4H PRN PRN Reason: Nausea/Vomiting Pantoprazole Sodium (Protonix Iv) 40 mg IVPUSH Q24H [facility] Last Admin: 08/26/19 17:23 Dose: 40 mg Sodium Chloride (Saline Flush) 10 ml FLUSH ASDIRECTED PRN PRN Reason: Keep Vein Open Discontinued Medications Sodium Chloride (Normal Saline) 1,000 mls @ 150 mls/hr IV ASDIRECTED [facility] Last Admin: 08/26/19 12:16 Dose: 150 mls/hr Sodium Chloride (Normal Saline) 85 mls @ 3 mls/sec IV ONETIME ONE Stop: 08/26/19 12:21 Last Admin: 08/26/19 12:41 Dose: 3 mls/sec Sodium Chloride (Normal Saline) 1,000 mls @ 999 mls/hr IV .BOLUS ONE Stop: 08/26/19 14:08 Last Admin: 08/26/19 13:13 Dose: 999 mls/hr Piperacillin/Tazobactam/ (Dextrose 4.5 gm/ Premix) 100 mls @ 100 mls/hr IV ONETIME ONE Stop: 08/26/19 14:59 Last Admin: 08/26/19 13:58 Dose: 100 mls/hr Ceftriaxone Sodium 1 gm/ (Sodium Chloride) 50 mls @ 100 mls/hr IV Q24H [facility] Last Admin: 08/27/19 02:44 Dose: 100 mls/hr Iopamidol (Isovue-300 (61%)) 150 ml IV ONETIME ONE Stop: 08/26/19 12:21 Last Admin: 08/26/19 12:41 Dose: 150 ml Lorazepam (Ativan) 1 mg IVPUSH ONETIME ONE Stop: 08/26/19 13:02 Last Admin: 08/26/19 13:09 Dose: 1 mg Ondansetron HCl (Zofran) 4 mg IVPUSH ONETIME ONE Stop: 08/26/19 11:57 Last Admin: 08/26/19 12:13 Dose: 4 mg Pantoprazole Sodium (Protonix Iv) 40 mg IVPUSH ONETIME ONE Stop: 08/26/19 11:57 Last Admin: 08/26/19 12:15 Dose: 40 mg Sodium Chloride (Saline Flush) 10 ml FLUSH ASDIRECTED PRN PRN Reason: Keep Vein Open Last Admin: 08/26/19 12:17 Dose: 10 ml Sodium Chloride (Saline Flush) 10 ml FLUSH ONETIME PRN PRN Reason: PER RADIOLOGY PROTOCOL Last Admin: 08/26/19 12:41 Dose: 10 ml - Exam General: Alert, Oriented, Cooperative, No Acute Distress Lungs: Normal Respiratory Effort, Wheezing Cardiovascular: Regular Rate, Regular Rhythm GI/Abdominal Exam: Normal Bowel Sounds, Soft, Non-Tender Back Exam: Normal Inspection Extremities: Normal Inspection Skin: Warm, Dry, Intact Neurological: No New Focal Deficit Psy/Mental Status: Alert, Normal Affect, Normal Mood Consult PN Assessment/Plan (1) Small bowel obstruction SNOMED Code(s): 880642067 Code(s): K56.609 - UNSP INTESTNL OBST, UNSP TO PARTIAL VERSUS COMPLETE OBST Current Visit: Yes Problem List Initiated/Reviewed/Updated: Yes Plan: X-ray shows gas in rectum, also small bowel gas. He had large BM and is passing gas. Yesterday I saw no gas in his rectum. His abdomen is non-tender. NG with large output. He produced over a liter of urine since admitted last PM. WBC up a little and had fever last night. On antibiotics. Source of fever ?? Discussed with Dr. Mejia with agreement that the conservative thing to do would be an abdominal exploration. He refuses this at this time.
[2019-08-27] MEDS ORDERED: Albuterol/Ipratropium 3.0-0.5 MG/3 ML Neb Soln NEB PRN (10:15)
[2019-08-27] MEDS ORDERED: Sodium Chloride 0.9% 1,000 ML IV SCH (10:30)
--- NOTE | 2019-08-27 10:35 | PCM.PN ---
- General Info Date of Service: 08/27/19 Subjective Update: Mr. Grimes feels improved since admission with less abdominal/chest pain, no nausea or vomiting. He did experience temperature elevation during the night, blood cultures were obtained and he was given a dose of ceftriaxone. He has been afebrile since then. Despite vigorous IV fluid replacement, lactic acid level has only improved modestly and still remains mildly elevated. White blood cell count is up slightly from admission. Functional Status: Reports: Ambulating, Urinating - Review of Systems General: Reports: Fever, Weakness, Chills Pulmonary: Reports: No Symptoms Cardiovascular: Reports: No Symptoms Gastrointestinal: Reports: Flatus. Denies: Abdominal Pain, Diarrhea, Difficulty Swallowing, Nausea, Vomiting Genitourinary: Reports: No Symptoms - Patient Data Vitals - Most Recent: Last Vital Signs Temp 98.8 F 08/27/19 07:35 Pulse 93 08/27/19 07:35 Resp 18 08/27/19 07:35 BP 138/70 08/27/19 07:35 Pulse Ox 97 08/27/19 07:35 Weight - Most Recent: 230 lb I&O - Last 24 Hours: Intake & Output 08/26/19 08/27/19 08/27/19 22:59 06:59 14:59 Intake Total 153 1317 Output Total 850 890 100 Balance -697 427 -100 Lab Results Last 24 Hours: Laboratory Results - last 24 hr 08/26/19 08/26/19 08/26/19 Range/Units 12:06 12:06 12:06 WBC 15.3 H (4.5-11.0) K/uL RBC 5.55 (4.30-5.90) M/uL Hgb 16.2 H (12.0-15.0) g/dL Hct 49.4 (40.0-54.0) % MCV 89 (80-98) fL MCH 29 (27-31) pg MCHC 33 (32-36) % Plt Count 437 H (150-400) K/uL Neut % (Auto) 87 H (36-66) % Lymph % (Auto) 8 L (24-44) % [place] % (Auto) 5 (2-6) % Eos % (Auto) 0 L (2-4) % Baso % (Auto) 0 (0-1) % Sodium 137 L (140-148) mmol/L Potassium 4.2 (3.6-5.2) mmol/L Chloride 98 L (100-108) mmol/L Carbon Dioxide 25 (21-32) mmol/L Anion Gap 18.2 H (5.0-14.0) mmol/L BUN 18 (7-18) mg/dL Creatinine 1.2 (0.8-1.3) mg/dL Est Cr Clr Drug Dosing 64.21 mL/min Estimated GFR (MDRD) > 60 (>60) Glucose 301 H (74-106) mg/dL Lactic Acid (0.4-2.0) mmol/L Calcium 9.4 (8.5-10.1) mg/dL Magnesium (1.8-2.4) mg/dL Total Bilirubin 0.6 (0.2-1.0) mg/dL AST 55 H (15-37) U/L ALT 82 H (12-78) U/L Alkaline Phosphatase 105 (46-116) U/L Troponin I < 0.017 (0.000-0.056) ng/mL C-Reactive Protein 0.97 H (0.0-0.3) mg/dL Total Protein 7.8 (6.4-8.2) g/dL Albumin 3.9 (3.4-5.0) g/dL Globulin 3.9 H (2.3-3.5) g/dL Albumin/Globulin Ratio 1.0 L (1.2-2.2) Lipase 138 (73-393) U/L Procalcitonin ng/mL Urine Color (YELLOW) Urine Appearance (CLEAR) Urine pH (5.0-8.0) Ur Specific [place] (1.008-1.030) Urine Protein (NEGATIVE) mg/dL Urine Glucose (UA) (NEGATIVE) mg/dL Urine Ketones (NEGATIVE) mg/dL Urine Occult Blood (NEGATIVE) Urine Nitrite (NEGATIVE) Urine Bilirubin (NEGATIVE) Urine Urobilinogen (0.2-1.0) EU/dL Ur Leukocyte Esterase (NEGATIVE) Urine RBC (0-5) Urine WBC (0-5) Ur Epithelial Cells Amorphous Sediment Urine Bacteria Urine Mucus 08/26/19 08/26/19 08/27/19 Range/Units 12:36 14:14 02:40 WBC 16.2 H (4.5-11.0) K/uL RBC 5.21 (4.30-5.90) M/uL Hgb 15.1 H (12.0-15.0) g/dL Hct 46.6 (40.0-54.0) % MCV 89 (80-98) fL MCH 29 (27-31) pg MCHC 32 (32-36) % Plt Count 375 (150-400) K/uL Neut % (Auto) (36-66) % Lymph % (Auto) (24-44) % [place] % (Auto) (2-6) % Eos % (Auto) (2-4) % Baso % (Auto) (0-1) % Sodium (140-148) mmol/L Potassium (3.6-5.2) mmol/L Chloride (100-108) mmol/L Carbon Dioxide (21-32) mmol/L Anion Gap (5.0-14.0) mmol/L BUN (7-18) mg/dL Creatinine (0.8-1.3) mg/dL Est Cr Clr Drug Dosing mL/min Estimated GFR (MDRD) (>60) Glucose (74-106) mg/dL Lactic Acid 4.3 H (0.4-2.0) mmol/L Calcium (8.5-10.1) mg/dL Magnesium (1.8-2.4) mg/dL Total Bilirubin (0.2-1.0) mg/dL AST (15-37) U/L ALT (12-78) U/L Alkaline Phosphatase (46-116) U/L Troponin I (0.000-0.056) ng/mL C-Reactive Protein (0.0-0.3) mg/dL Total Protein (6.4-8.2) g/dL Albumin (3.4-5.0) g/dL Globulin (2.3-3.5) g/dL Albumin/Globulin Ratio (1.2-2.2) Lipase (73-393) U/L Procalcitonin 0.09 ng/mL Urine Color (YELLOW) Urine Appearance (CLEAR) Urine pH (5.0-8.0) Ur Specific [place] (1.008-1.030) Urine Protein (NEGATIVE) mg/dL Urine Glucose (UA) (NEGATIVE) mg/dL Urine Ketones (NEGATIVE) mg/dL Urine Occult Blood (NEGATIVE) Urine Nitrite (NEGATIVE) Urine Bilirubin (NEGATIVE) Urine Urobilinogen (0.2-1.0) EU/dL Ur Leukocyte Esterase (NEGATIVE) Urine RBC (0-5) Urine WBC (0-5) Ur Epithelial Cells Amorphous Sediment Urine Bacteria Urine Mucus 08/27/19 08/27/19 08/27/19 Range/Units 02:40 08:34 09:46 WBC (4.5-11.0) K/uL RBC (4.30-5.90) M/uL Hgb (12.0-15.0) g/dL Hct (40.0-54.0) % MCV (80-98) fL MCH (27-31) pg MCHC (32-36) % Plt Count (150-400) K/uL Neut % (Auto) (36-66) % Lymph % (Auto) (24-44) % [place] % (Auto) (2-6) % Eos % (Auto) (2-4) % Baso % (Auto) (0-1) % Sodium 139 L (140-148) mmol/L Potassium 4.0 (3.6-5.2) mmol/L Chloride 103 (100-108) mmol/L Carbon Dioxide 24 (21-32) mmol/L Anion Gap 16.0 H (5.0-14.0) mmol/L BUN 15 (7-18) mg/dL Creatinine 1.0 (0.8-1.3) mg/dL Est Cr Clr Drug Dosing 77.24 mL/min Estimated GFR (MDRD) > 60 (>60) Glucose 177 H (74-106) mg/dL Lactic Acid 3.6 H (0.4-2.0) mmol/L Calcium 8.1 L (8.5-10.1) mg/dL Magnesium 1.8 (1.8-2.4) mg/dL Total Bilirubin (0.2-1.0) mg/dL AST (15-37) U/L ALT (12-78) U/L Alkaline Phosphatase (46-116) U/L Troponin I (0.000-0.056) ng/mL C-Reactive Protein (0.0-0.3) mg/dL Total Protein (6.4-8.2) g/dL Albumin (3.4-5.0) g/dL Globulin (2.3-3.5) g/dL Albumin/Globulin Ratio (1.2-2.2) Lipase (73-393) U/L Procalcitonin ng/mL Urine Color Yellow (YELLOW) Urine Appearance Clear (CLEAR) Urine pH 6.5 (5.0-8.0) Ur Specific [place] 1.025 (1.008-1.030) Urine Protein Negative (NEGATIVE) mg/dL Urine Glucose (UA) Negative (NEGATIVE) mg/dL Urine Ketones Negative (NEGATIVE) mg/dL Urine Occult Blood Moderate H (NEGATIVE) Urine Nitrite Negative (NEGATIVE) Urine Bilirubin Negative (NEGATIVE) Urine Urobilinogen 0.2 (0.2-1.0) EU/dL Ur Leukocyte Esterase Negative (NEGATIVE) Urine RBC 10-20 H (0-5) Urine WBC Not seen (0-5) Ur Epithelial Cells Not seen Amorphous Sediment Few Urine Bacteria Not seen Urine Mucus Not seen Med Orders - Current: Current Medications Acetaminophen (Tylenol) 650 mg PO Q4H PRN PRN Reason: Fever Last Admin: 08/27/19 02:42 Dose: 650 mg Albuterol/Ipratropium (Duoneb 3.0-0.5 Mg/3 Ml) 3 ml NEB Q4H PRN PRN Reason: Wheezing Dextrose (Glutose 15) 15 gm PO ONETIME PRN PRN Reason: Hypoglycemia Dextrose/Water (Dextrose 50% In Water) 50 ml IV ONETIME PRN PRN Reason: Hypoglycemia Hydromorphone HCl (Dilaudid) 0.5 mg IVPUSH Q2H PRN PRN Reason: Pain Sodium Chloride (Normal Saline) 1,000 mls @ 125 mls/hr IV ASDIRECTED [facility] Last Admin: 08/27/19 07:35 Dose: 125 mls/hr Ampicillin Sodium/Sulbactam (Sodium 1.5 gm/ Sodium Chloride) 50 mls @ 100 mls/ hr IV Q6HR [facility] Aztreonam 1 gm/ Sodium (Chloride) 50 mls @ 100 mls/hr IV Q8H [facility] Last Admin: 08/27/19 09:25 Dose: 100 mls/hr Sodium Chloride (Normal Saline) 1,000 mls @ 500 mls/hr IV ASDIRECTED [facility] Stop: 08/27/19 12:31 Insulin Human Lispro (Humalog) 0 unit SUBCUT QIDACANDBED [facility]; Protocol Last Admin: 08/27/19 07:35 Dose: 1 units Lactobacillus Rhamnosus (Culturelle) 1 cap PO BID [facility] Last Admin: 08/27/19 09:25 Dose: 1 cap Ondansetron HCl (Zofran) 4 mg IV Q4H PRN PRN Reason: Nausea/Vomiting Pantoprazole Sodium (Protonix Iv) 40 mg IVPUSH Q24H [facility] Last Admin: 08/26/19 17:23 Dose: 40 mg Sodium Chloride (Saline Flush) 10 ml FLUSH ASDIRECTED PRN PRN Reason: Keep Vein Open Discontinued Medications Sodium Chloride (Normal Saline) 1,000 mls @ 150 mls/hr IV ASDIRECTED [facility] Last Admin: 08/26/19 12:16 Dose: 150 mls/hr Sodium Chloride (Normal Saline) 85 mls @ 3 mls/sec IV ONETIME ONE Stop: 08/26/19 12:21 Last Admin: 08/26/19 12:41 Dose: 3 mls/sec Sodium Chloride (Normal Saline) 1,000 mls @ 999 mls/hr IV .BOLUS ONE Stop: 08/26/19 14:08 Last Admin: 08/26/19 13:13 Dose: 999 mls/hr Piperacillin/Tazobactam/ (Dextrose 4.5 gm/ Premix) 100 mls @ 100 mls/hr IV ONETIME ONE Stop: 08/26/19 14:59 Last Admin: 08/26/19 13:58 Dose: 100 mls/hr Ceftriaxone Sodium 1 gm/ (Sodium Chloride) 50 mls @ 100 mls/hr IV Q24H [facility] Last Admin: 08/27/19 02:44 Dose: 100 mls/hr Iopamidol (Isovue-300 (61%)) 150 ml IV ONETIME ONE Stop: 08/26/19 12:21 Last Admin: 08/26/19 12:41 Dose: 150 ml Lorazepam (Ativan) 1 mg IVPUSH ONETIME ONE Stop: 08/26/19 13:02 Last Admin: 08/26/19 13:09 Dose: 1 mg Ondansetron HCl (Zofran) 4 mg IVPUSH ONETIME ONE Stop: 08/26/19 11:57 Last Admin: 08/26/19 12:13 Dose: 4 mg Pantoprazole Sodium (Protonix Iv) 40 mg IVPUSH ONETIME ONE Stop: 08/26/19 11:57 Last Admin: 08/26/19 12:15 Dose: 40 mg Sodium Chloride (Saline Flush) 10 ml FLUSH ASDIRECTED PRN PRN Reason: Keep Vein Open Last Admin: 08/26/19 12:17 Dose: 10 ml Sodium Chloride (Saline Flush) 10 ml FLUSH ONETIME PRN PRN Reason: PER RADIOLOGY PROTOCOL Last Admin: 08/26/19 12:41 Dose: 10 ml - Exam Quality Assessment: DVT Prophylaxis General: Alert, Oriented, Cooperative, Mild Distress Lungs: Clear to Auscultation, Normal Respiratory Effort Cardiovascular: Regular Rate, Regular Rhythm, No Murmurs GI/Abdominal Exam: Soft, Non-Tender, No Organomegaly, No Distention Extremities: Non-Tender, No Pedal Edema - Problem List Review Problem List Initiated/Reviewed/Updated: Yes - My Orders Last 24 Hours: My Active Orders 08/26/19 15:03 Resuscitation Status Routine 08/26/19 16:04 Patient Status [ADT] Routine Ambulate [RC] QID Blood Glucose Check, Bedside [RC] QIDACANDBED Communication Order [RC] STAT Diabetes Education [RC] Click to Edit Gastrointestinal Tube Mgmt [RC] Q12H Height and Weight [RC] DAILY Intake and Output [RC] QSHIFT Notify Provider Consults [RC] ASDIRECTED Notify Provider Vital Signs [RC] ASDIRECTED Notify Provider [RC] PRN Oxygen Therapy [RC] PRN Peripheral IV Care [RC] Q12H Up to Chair [RC] QID Vital Signs [RC] Q4H Consult to Physician [CONS] Routine Dextrose 50% in Water 50 ml IV ONETIME PRN Dextrose [Glutose 15] 15 gm PO ONETIME PRN HYDROmorphone [Dilaudid] 0.5 mg IVPUSH Q2H PRN Ondansetron [Zofran] 4 mg IV Q4H PRN Sodium Chloride 0.9% [Normal Saline] 1,000 ml IV ASDIRECTED Sodium Chloride 0.9% [Saline Flush] 10 ml FLUSH ASDIRECTED PRN Peripheral IV Insertion Adult [OM.PC] Routine Sequential Compression Device [OM.PC] Per Unit Routine VTE Pharmacological Contraindications [AST] Per Unit Routine 08/26/19 17:00 Insulin Lispro [HumaLOG] See Protocol SUBCUT QIDACANDBED Pantoprazole [ProTONIX IV] 40 mg IVPUSH Q24H 08/26/19 Lunch Nothing per Oral Now Diet [DIET] 08/27/19 09:00 Aztreonam [Azactam] 1 gm Sodium Chloride 0.9% [Normal Saline] 50 ml IV Q8H Lactobacillus Rhamnosus GG [Culturelle] 1 cap PO BID 08/27/19 10:00 Ampicillin/Sulbactam Na [Unasyn] 1.5 gm Sodium Chloride 0.9% [Normal Saline] 50 ml IV Q6HR 08/27/19 10:30 Sodium Chloride 0.9% [Normal Saline] 1,000 ml IV ASDIRECTED 08/27/19 11:30 GLUCOSE POC LAB TO COLLECT [POC] QIDACANDBED 08/27/19 16:30 GLUCOSE POC LAB TO COLLECT [POC] QIDACANDBED 08/27/19 17:00 BASIC METABOLIC PANEL,BMP [CHEM] Stat LACTIC ACID [CHEM] Stat 08/27/19 21:00 GLUCOSE POC LAB TO COLLECT [POC] QIDACANDBED 08/28/19 05:00 BASIC METABOLIC PANEL,BMP [CHEM] Timed CBC WITH AUTO DIFF [HEME] Timed LACTIC ACID [CHEM] Timed 08/28/19 07:30 GLUCOSE POC LAB TO COLLECT [POC] QIDACANDBED 08/28/19 11:30 GLUCOSE POC LAB TO COLLECT [POC] QIDACANDBED 08/28/19 16:30 GLUCOSE POC LAB TO COLLECT [POC] QIDACANDBED 08/28/19 21:00 GLUCOSE POC LAB TO COLLECT [POC] QIDACANDBED 08/29/19 07:30 GLUCOSE POC LAB TO COLLECT [POC] QIDACANDBED 08/29/19 11:30 GLUCOSE POC LAB TO COLLECT [POC] QIDACANDBED 08/29/19 16:30 GLUCOSE POC LAB TO COLLECT [POC] QIDACANDBED 08/29/19 21:00 GLUCOSE POC LAB TO COLLECT [POC] QIDACANDBED 08/30/19 07:30 GLUCOSE POC LAB TO COLLECT [POC] QIDACANDBED 08/30/19 11:30 GLUCOSE POC LAB TO COLLECT [POC] QIDACANDBED 08/30/19 16:30 GLUCOSE POC LAB TO COLLECT [POC] QIDACANDBED 08/30/19 21:00 GLUCOSE POC LAB TO COLLECT [POC] QIDACANDBED 08/31/19 07:30 GLUCOSE POC LAB TO COLLECT [POC] QIDACANDBED 08/31/19 11:30 GLUCOSE POC LAB TO COLLECT [POC] QIDACANDBED 08/31/19 16:30 GLUCOSE POC LAB TO COLLECT [POC] QIDACANDBED 08/31/19 21:00 GLUCOSE POC LAB TO COLLECT [POC] QIDACANDBED 09/01/19 07:30 GLUCOSE POC LAB TO COLLECT [POC] QIDACANDBED 09/01/19 11:30 GLUCOSE POC LAB TO COLLECT [POC] QIDACANDBED - Plan Plan:: ASSESSMENT AND PLAN SMALL BOWEL OBSTRUCTION-no history of previous abdominal surgery or bowel obstructions. Evidence of obstruction identified on CT scan with multiple air- fluid levels and transition point in the right lower quadrant area. He feels improved since admission, with less abdominal pain and no nausea or vomiting. Of concern is persistent and increased white blood cell count, persistent mild elevation in lactic acid, and fever. -Nothing by mouth -IV fluids for hydration -NG tube to low intermittent suction -abdominal flat plate and upright x-ray in a.m. -Medication for nausea and pain as needed -Surgical consult Dr. Butler TYPE 2 DIABETES MELLITUS -Hold metformin -QID glucometers -Low-dose sliding scale Humalog MAINTENANCE ISSUES -DVT prophylaxis; SCUDs, hold on anticoagulation because of potential need for surgery -GI prophylaxis; Protonix 40 mg IV daily -Camarena catheter; not indicated -Nutrition; nothing by mouth -Nicotine dependence; not required CODE STATUS-FULL CODE ADMISSION STATUS-patient will be admitted to inpatient status, expect at least a 2 night hospital stay for evaluation and management of problems as outlined above. At the time of this admission I do not reasonably expected evaluation and management of this problem will require more than a 96 hour hospital stay. DISPOSITION-anticipate discharge to home after the hospital stay. PRIMARY CARE PROVIDER-
[2019-08-27] MEDS ORDERED: Albuterol 0.083% 2.5 MG/3 ML Neb Soln NEB PRN (10:58)
[2019-08-27] MEDS: Ampicillin/Sulbactam Na 1.5 GM in Sodium Chloride 0.9% 50 ML IV SCH ×3 (11:01→21:23)
[2019-08-27] MEDS: Albuterol/Ipratropium 3.0-0.5 MG/3 ML Neb Soln NEB SCH ×3 (11:16→21:24)
[2019-08-27] MEDS ORDERED: Phenol/Sodium Phenolate Spray 180 ML Bottle MUCMEM PRN (12:32)
[2019-08-27] MEDS: Pantoprazole 40 MG Vial IVPUSH SCH (17:09)
[2019-08-27] MEDS: HYDROmorphone 0.5 MG/0.5 ML Syringe IVPUSH PRN (20:17)
[2019-08-28] MEDS: Sodium Chloride 0.9% 1,000 ML IV SCH (01:31)
[2019-08-28] MEDS: Ampicillin/Sulbactam Na 1.5 GM in Sodium Chloride 0.9% 50 ML IV SCH ×4 (03:09→22:55)
[2019-08-28] MEDS: HYDROmorphone 0.5 MG/0.5 ML Syringe IVPUSH PRN ×2 (04:16→20:13)
--- NOTE | 2019-08-28 04:30 | CRLCR ---
INDICATION: Small bowel obstruction TECHNIQUE: Abdominal radiograph 4 views COMPARISON: 08/27/2019 FINDINGS: Bowel: The bowel gas pattern is normal without evidence of bowel obstruction. NG tube has been advanced with the tip now seen over the gastric antrum. Soft tissue: No evidence of pneumoperitoneum present. No suspicious calcifications noted. Bone: Unremarkable for age. IMPRESSION: 1. NG tube has been advanced with the tip now seen over the gastric antrum. Dictated by Herve Whitney MD @ 08/28/2019 4:29:27 AM Dictated by: Herve Whitney MD @ 08/28/2019 04:29:30 (Electronically Signed)
[2019-08-28] MEDS: Albuterol/Ipratropium 3.0-0.5 MG/3 ML Neb Soln NEB SCH ×4 (07:35→20:13)
[2019-08-28] MEDS: Insulin Lispro 100 Unit/ML 3 ML KwikPen SUBCUT SCH ×4 (08:29→23:36)
[2019-08-28] MEDS: Lactobacillus Rhamnosus GG (Probiotic) Cap PO SCH ×2 (09:18→20:04)
[2019-08-28] MEDS ORDERED: methylPREDNISolone Sodium Succinate 40 MG/1 ML SDV IVPUSH ONE (11:11)
[2019-08-28] MEDS ORDERED: Sodium Chloride 0.9% 1,000 ML IV SCH (11:15)
--- NOTE | 2019-08-28 11:22 | PCM.PN ---
- General Info Date of Service: 08/28/19 Subjective Update: Mr. Grimes has unfortunately experience left knee pain over the past 24 hours. He has a history of previous traumatic injury to the left knee as well as a history of gout. He is doing better as far as his bowel obstruction denies abdominal pain, nausea, or vomiting. Abdominal flat plate and upright x-ray obtained this morning shows no evidence of obstruction. NG output over the past few hours has been negligible. Functional Status: Reports: Urinating - Review of Systems General: Reports: Weakness. Denies: Fever, Chills Pulmonary: Reports: No Symptoms Cardiovascular: Reports: No Symptoms Gastrointestinal: Reports: No Symptoms Musculoskeletal: Reports: Joint Pain (Left knee) - Patient Data Vitals - Most Recent: Last Vital Signs Temp 98.1 F 08/28/19 08:00 Pulse 80 08/28/19 08:00 Resp 16 08/28/19 08:00 BP 161/87 H 08/28/19 08:00 Pulse Ox 96 08/28/19 08:00 Weight - Most Recent: 234 lb 3.2 oz I&O - Last 24 Hours: Intake & Output 08/27/19 08/28/19 08/28/19 22:59 06:59 14:59 Intake Total 55 1189 Output Total 550 1600 1100 Balance -495 -411 -1100 Lab Results Last 24 Hours: Laboratory Results - last 24 hr 08/27/19 08/27/19 08/28/19 Range/Units 16:57 16:57 04:53 WBC 9.4 (4.5-11.0) K/uL RBC 4.58 (4.30-5.90) M/uL Hgb 13.6 (12.0-15.0) g/dL Hct 41.6 (40.0-54.0) % MCV 91 (80-98) fL MCH 30 (27-31) pg MCHC 33 (32-36) % Plt Count 324 (150-400) K/uL Neut % (Auto) 68 H (36-66) % Lymph % (Auto) 18 L (24-44) % [place] % (Auto) 9 H (2-6) % Eos % (Auto) 5 H (2-4) % Baso % (Auto) 0 (0-1) % Sodium 140 (140-148) mmol/L Potassium 3.7 (3.6-5.2) mmol/L Chloride 104 (100-108) mmol/L Carbon Dioxide 26 (21-32) mmol/L Anion Gap 10.3 (5.0-14.0) mmol/L BUN 14 (7-18) mg/dL Creatinine 1.1 (0.8-1.3) mg/dL Est Cr Clr Drug Dosing 70.22 mL/min Estimated GFR (MDRD) > 60 (>60) Glucose 134 H (74-106) mg/dL Lactic Acid 2.9 H (0.4-2.0) mmol/L Calcium 7.9 L (8.5-10.1) mg/dL 08/28/19 08/28/19 Range/Units 04:53 04:53 WBC (4.5-11.0) K/uL RBC (4.30-5.90) M/uL Hgb (12.0-15.0) g/dL Hct (40.0-54.0) % MCV (80-98) fL MCH (27-31) pg MCHC (32-36) % Plt Count (150-400) K/uL Neut % (Auto) (36-66) % Lymph % (Auto) (24-44) % [place] % (Auto) (2-6) % Eos % (Auto) (2-4) % Baso % (Auto) (0-1) % Sodium 139 L (140-148) mmol/L Potassium 3.6 (3.6-5.2) mmol/L Chloride 104 (100-108) mmol/L Carbon Dioxide 24 (21-32) mmol/L Anion Gap 14.6 H (5.0-14.0) mmol/L BUN 13 (7-18) mg/dL Creatinine 0.9 (0.8-1.3) mg/dL Est Cr Clr Drug Dosing 85.83 mL/min Estimated GFR (MDRD) > 60 (>60) Glucose 157 H (74-106) mg/dL Lactic Acid 1.8 (0.4-2.0) mmol/L Calcium 8.2 L (8.5-10.1) mg/dL Aram Results Last 24 Hours: Microbiology 08/27/19 02:40 Aerobic Blood Culture - Preliminary Blood - Arm, Left NO GROWTH AFTER 1 DAY Anaerobic Blood Culture - Preliminary NO GROWTH AFTER 1 DAY 08/27/19 02:30 Aerobic Blood Culture - Preliminary Blood - Arm, Left NO GROWTH AFTER 1 DAY Anaerobic Blood Culture - Preliminary NO GROWTH AFTER 1 DAY Med Orders - Current: Current Medications Acetaminophen (Tylenol) 650 mg PO Q4H PRN PRN Reason: Fever Last Admin: 08/27/19 21:23 Dose: 650 mg Albuterol (Proventil Neb Soln) 2.5 mg NEB Q4H PRN PRN Reason: Dyspnea Albuterol/Ipratropium (Duoneb 3.0-0.5 Mg/3 Ml) 3 ml NEB Q4H PRN PRN Reason: Wheezing Albuterol/Ipratropium (Duoneb 3.0-0.5 Mg/3 Ml) 3 ml NEB QIDRT [facility] Last Admin: 08/28/19 07:35 Dose: 3 ml Dextrose (Glutose 15) 15 gm PO ONETIME PRN PRN Reason: Hypoglycemia Dextrose/Water (Dextrose 50% In Water) 50 ml IV ONETIME PRN PRN Reason: Hypoglycemia Hydromorphone HCl (Dilaudid) 0.5 mg IVPUSH Q2H PRN PRN Reason: Pain Last Admin: 08/28/19 04:16 Dose: 0.5 mg Ampicillin Sodium/Sulbactam (Sodium 1.5 gm/ Sodium Chloride) 50 mls @ 100 mls/ hr IV Q6HR [facility] Last Admin: 08/28/19 09:18 Dose: 100 mls/hr Sodium Chloride (Normal Saline) 1,000 mls @ 75 mls/hr IV ASDIRECTED [facility] Insulin Human Lispro (Humalog) 0 unit SUBCUT QIDACANDBED [facility]; Protocol Last Admin: 08/28/19 08:29 Dose: Not Given Lactobacillus Rhamnosus (Culturelle) 1 cap PO BID [facility] Last Admin: 08/28/19 09:18 Dose: 1 cap Ondansetron HCl (Zofran) 4 mg IV Q4H PRN PRN Reason: Nausea/Vomiting Pantoprazole Sodium (Protonix Iv) 40 mg IVPUSH Q24H [facility] Last Admin: 08/27/19 17:09 Dose: 40 mg Phenol (Phenaseptic Liquid) 0 ml MUCMEM Q2H PRN PRN Reason: Sore Throat Last Admin: 08/27/19 14:38 Dose: 1 spray Sodium Chloride (Saline Flush) 10 ml FLUSH ASDIRECTED PRN PRN Reason: Keep Vein Open Discontinued Medications Sodium Chloride (Normal Saline) 1,000 mls @ 150 mls/hr IV ASDIRECTED [facility] Last Admin: 08/26/19 12:16 Dose: 150 mls/hr Sodium Chloride (Normal Saline) 85 mls @ 3 mls/sec IV ONETIME ONE Stop: 08/26/19 12:21 Last Admin: 08/26/19 12:41 Dose: 3 mls/sec Sodium Chloride (Normal Saline) 1,000 mls @ 999 mls/hr IV .BOLUS ONE Stop: 08/26/19 14:08 Last Admin: 08/26/19 13:13 Dose: 999 mls/hr Piperacillin/Tazobactam/ (Dextrose 4.5 gm/ Premix) 100 mls @ 100 mls/hr IV ONETIME ONE Stop: 08/26/19 14:59 Last Admin: 08/26/19 13:58 Dose: 100 mls/hr Sodium Chloride (Normal Saline) 1,000 mls @ 125 mls/hr IV ASDIRECTED [facility] Last Admin: 08/28/19 01:31 Dose: 125 mls/hr Ceftriaxone Sodium 1 gm/ (Sodium Chloride) 50 mls @ 100 mls/hr IV Q24H [facility] Last Admin: 08/27/19 02:44 Dose: 100 mls/hr Aztreonam 1 gm/ Sodium (Chloride) 50 mls @ 100 mls/hr IV Q8H [facility] Last Admin: 08/28/19 08:40 Dose: 100 mls/hr Sodium Chloride (Normal Saline) 1,000 mls @ 500 mls/hr IV ASDIRECTED [facility] Stop: 08/27/19 12:31 Iopamidol (Isovue-300 (61%)) 150 ml IV ONETIME ONE Stop: 08/26/19 12:21 Last Admin: 08/26/19 12:41 Dose: 150 ml Lorazepam (Ativan) 1 mg IVPUSH ONETIME ONE Stop: 08/26/19 13:02 Last Admin: 08/26/19 13:09 Dose: 1 mg Ondansetron HCl (Zofran) 4 mg IVPUSH ONETIME ONE Stop: 08/26/19 11:57 Last Admin: 08/26/19 12:13 Dose: 4 mg Pantoprazole Sodium (Protonix Iv) 40 mg IVPUSH ONETIME ONE Stop: 08/26/19 11:57 Last Admin: 08/26/19 12:15 Dose: 40 mg Sodium Chloride (Saline Flush) 10 ml FLUSH ASDIRECTED PRN PRN Reason: Keep Vein Open Last Admin: 08/26/19 12:17 Dose: 10 ml Sodium Chloride (Saline Flush) 10 ml FLUSH ONETIME PRN PRN Reason: PER RADIOLOGY PROTOCOL Last Admin: 08/26/19 12:41 Dose: 10 ml - Exam Quality Assessment: DVT Prophylaxis General: Alert, Oriented, Cooperative, Mild Distress Lungs: Clear to Auscultation, Normal Respiratory Effort Cardiovascular: Regular Rate, Regular Rhythm, No Murmurs GI/Abdominal Exam: Soft, Non-Tender, No Organomegaly, No Distention Extremities: Joint Swelling (Mild swelling left knee) - Problem List Review Problem List Initiated/Reviewed/Updated: Yes - My Orders Last 24 Hours: My Active Orders 08/27/19 10:58 RT Aerosol Therapy [RC] ASDIRECTED Albuterol [Proventil Neb Soln] 2.5 mg NEB Q4H PRN 08/27/19 11:00 Albuterol/Ipratropium [DuoNeb 3.0-0.5 MG/3 ML] 3 ml NEB QIDRT 08/27/19 12:32 Phenol/Sodium Phenolate [Phenaseptic Liquid] 0 ml MUCMEM Q2H PRN 08/28/19 11:10 URIC ACID [CHEM] Stat 08/28/19 11:11 methylPREDNISolone Sod Succ [Solu-MEDROL] 40 mg IVPUSH ONETIME ONE 08/28/19 11:15 Sodium Chloride 0.9% @ 75 MLS/HR(1000ml) Sodium Chloride 0.9% [Normal Saline] 1 ,000 ml IV ASDIRECTED 08/28/19 11:30 GLUCOSE POC LAB TO COLLECT [POC] QIDACANDBED 08/28/19 16:30 GLUCOSE POC LAB TO COLLECT [POC] QIDACANDBED 08/28/19 21:00 GLUCOSE POC LAB TO COLLECT [POC] QIDACANDBED 08/29/19 05:00 BASIC METABOLIC PANEL,BMP [CHEM] Timed 08/29/19 07:30 GLUCOSE POC LAB TO COLLECT [POC] QIDACANDBED 08/29/19 11:30 GLUCOSE POC LAB TO COLLECT [POC] QIDACANDBED 08/29/19 16:30 GLUCOSE POC LAB TO COLLECT [POC] QIDACANDBED 08/29/19 21:00 GLUCOSE POC LAB TO COLLECT [POC] QIDACANDBED 08/30/19 07:30 GLUCOSE POC LAB TO COLLECT [POC] QIDACANDBED 08/30/19 11:30 GLUCOSE POC LAB TO COLLECT [POC] QIDACANDBED 08/30/19 16:30 GLUCOSE POC LAB TO COLLECT [POC] QIDACANDBED 08/30/19 21:00 GLUCOSE POC LAB TO COLLECT [POC] QIDACANDBED 08/31/19 07:30 GLUCOSE POC LAB TO COLLECT [POC] QIDACANDBED 08/31/19 11:30 GLUCOSE POC LAB TO COLLECT [POC] QIDACANDBED 08/31/19 16:30 GLUCOSE POC LAB TO COLLECT [POC] QIDACANDBED 08/31/19 21:00 GLUCOSE POC LAB TO COLLECT [POC] QIDACANDBED 09/01/19 07:30 GLUCOSE POC LAB TO COLLECT [POC] QIDACANDBED 09/01/19 11:30 GLUCOSE POC LAB TO COLLECT [POC] QIDACANDBED - Plan Plan:: ASSESSMENT AND PLAN SMALL BOWEL OBSTRUCTION-no history of previous abdominal surgery or bowel obstructions. Evidence of obstruction identified on CT scan with multiple air- fluid levels and transition point in the right lower quadrant area. Syd pain and distention have resolved over last 24 hours, denies nausea or vomiting. Abdominal flat plate and upright from this morning shows no evidence of obstruction. He has improved with use of IV antibiotic therapy over the past 24 hours. White blood cell count has normalized and he is experienced no significant temperature elevations. -Nothing by mouth -IV fluids for hydration -Continue IV Unasyn -NG tube to low intermittent suction -abdominal flat plate and upright x-ray in a.m. -Medication for nausea and pain as needed -Ongoing management per Dr. Butler LEFT KNEE PAIN-suspect gout, previous history of traumatic injury to the knee -Uric acid level pending -Solu-Medrol 40 mg IV now TYPE 2 DIABETES MELLITUS -Hold metformin -QID glucometers -Low-dose sliding scale Humalog MAINTENANCE ISSUES -DVT prophylaxis; SCUDs, hold on anticoagulation because of potential need for surgery -GI prophylaxis; Protonix 40 mg IV daily -Camarena catheter; not indicated -Nutrition; nothing by mouth -Nicotine dependence; not required CODE STATUS-FULL CODE ADMISSION STATUS-patient will be admitted to inpatient status, expect at least a 2 night hospital stay for evaluation and management of problems as outlined above. At the time of this admission I do not reasonably expected evaluation and management of this problem will require more than a 96 hour hospital stay. DISPOSITION-anticipate discharge to home after the hospital stay. PRIMARY CARE PROVIDER-
--- NOTE | 2019-08-28 12:20 | PCM.CONSN ---
- General Info Date of Service: 08/28/19 Admission Dx/Problem (Free Text): Nausea and vomiting Subjective Update: Mr. Grimes has unfortunately experience left knee pain over the past 24 hours. He has a history of previous traumatic injury to the left knee as well as a history of gout. He is doing better as far as his bowel obstruction denies abdominal pain, nausea, or vomiting. Abdominal flat plate and upright x-ray obtained this morning shows no evidence of obstruction. NG output over the past few hours has been negligible. Functional Status: Reports: Pain Controlled, Ambulating, Urinating - Review of Systems General: Reports: No Symptoms HEENT: Reports: No Symptoms Pulmonary: Reports: No Symptoms Cardiovascular: Reports: No Symptoms Gastrointestinal: Reports: No Symptoms, [place]. Denies: Abdominal Pain, Nausea , Vomiting Genitourinary: Reports: No Symptoms Musculoskeletal: Reports: No Symptoms Skin: Reports: No Symptoms Neurological: Reports: No Symptoms Psychiatric: Reports: No Symptoms - Patient Data Vitals - Most Recent: Last Vital Signs Temp 99 F 08/28/19 11:55 Pulse 86 08/28/19 11:55 Resp 16 08/28/19 11:55 BP 148/71 H 08/28/19 11:55 Pulse Ox 97 08/28/19 11:55 Weight - Most Recent: 234 lb 3.2 oz I&O - Last 24 Hours: Intake & Output 08/27/19 08/28/19 08/28/19 22:59 06:59 14:59 Intake Total 55 1189 Output Total 550 1600 1200 Balance -495 411 -1200 Lab Results Last 24 Hours: Laboratory Results - last 24 hr 08/27/19 08/27/19 08/28/19 Range/Units 16:57 16:57 04:36 WBC (4.5-11.0) K/uL RBC (4.30-5.90) M/uL Hgb (12.0-15.0) g/dL Hct (40.0-54.0) % MCV (80-98) fL MCH (27-31) pg MCHC (32-36) % Plt Count (150-400) K/uL Neut % (Auto) (36-66) % Lymph % (Auto) (24-44) % [place] % (Auto) (2-6) % Eos % (Auto) (2-4) % Baso % (Auto) (0-1) % Sodium 140 (140-148) mmol/L Potassium 3.7 (3.6-5.2) mmol/L Chloride 104 (100-108) mmol/L Carbon Dioxide 26 (21-32) mmol/L Anion Gap 10.3 (5.0-14.0) mmol/L BUN 14 (7-18) mg/dL Creatinine 1.1 (0.8-1.3) mg/dL Est Cr Clr Drug Dosing 70.22 mL/min Estimated GFR (MDRD) > 60 (>60) Glucose 134 H (74-106) mg/dL Lactic Acid 2.9 H (0.4-2.0) mmol/L Uric Acid 5.8 (3.5-7.2) mg/dL Calcium 7.9 L (8.5-10.1) mg/dL 08/28/19 08/28/19 08/28/19 Range/Units 04:53 04:53 04:53 WBC 9.4 (4.5-11.0) K/uL RBC 4.58 (4.30-5.90) M/uL Hgb 13.6 (12.0-15.0) g/dL Hct 41.6 (40.0-54.0) % MCV 91 (80-98) fL MCH 30 (27-31) pg MCHC 33 (32-36) % Plt Count 324 (150-400) K/uL Neut % (Auto) 68 H (36-66) % Lymph % (Auto) 18 L (24-44) % [place] % (Auto) 9 H (2-6) % Eos % (Auto) 5 H (2-4) % Baso % (Auto) 0 (0-1) % Sodium 139 L (140-148) mmol/L Potassium 3.6 (3.6-5.2) mmol/L Chloride 104 (100-108) mmol/L Carbon Dioxide 24 (21-32) mmol/L Anion Gap 14.6 H (5.0-14.0) mmol/L BUN 13 (7-18) mg/dL Creatinine 0.9 (0.8-1.3) mg/dL Est Cr Clr Drug Dosing 85.83 mL/min Estimated GFR (MDRD) > 60 (>60) Glucose 157 H (74-106) mg/dL Lactic Acid 1.8 (0.4-2.0) mmol/L Uric Acid (3.5-7.2) mg/dL Calcium 8.2 L (8.5-10.1) mg/dL Aram Results Last 24 Hours: Microbiology 08/27/19 02:40 Aerobic Blood Culture - Preliminary Blood - Arm, Left NO GROWTH AFTER 1 DAY Anaerobic Blood Culture - Preliminary NO GROWTH AFTER 1 DAY 08/27/19 02:30 Aerobic Blood Culture - Preliminary Blood - Arm, Left NO GROWTH AFTER 1 DAY Anaerobic Blood Culture - Preliminary NO GROWTH AFTER 1 DAY Med Orders - Current: Current Medications Acetaminophen (Tylenol) 650 mg PO Q4H PRN PRN Reason: Fever Last Admin: 08/27/19 21:23 Dose: 650 mg Albuterol (Proventil Neb Soln) 2.5 mg NEB Q4H PRN PRN Reason: Dyspnea Albuterol/Ipratropium (Duoneb 3.0-0.5 Mg/3 Ml) 3 ml NEB Q4H PRN PRN Reason: Wheezing Albuterol/Ipratropium (Duoneb 3.0-0.5 Mg/3 Ml) 3 ml NEB QIDRT [facility] Last Admin: 08/28/19 11:17 Dose: 3 ml Dextrose (Glutose 15) 15 gm PO ONETIME PRN PRN Reason: Hypoglycemia Dextrose/Water (Dextrose 50% In Water) 50 ml IV ONETIME PRN PRN Reason: Hypoglycemia Hydromorphone HCl (Dilaudid) 0.5 mg IVPUSH Q2H PRN PRN Reason: Pain Last Admin: 08/28/19 04:16 Dose: 0.5 mg Ampicillin Sodium/Sulbactam (Sodium 1.5 gm/ Sodium Chloride) 50 mls @ 100 mls/ hr IV Q6HR [facility] Last Admin: 08/28/19 09:18 Dose: 100 mls/hr Sodium Chloride (Normal Saline) 1,000 mls @ 75 mls/hr IV ASDIRECTED [facility] Insulin Human Lispro (Humalog) 0 unit SUBCUT QIDACANDBED [facility]; Protocol Last Admin: 08/28/19 11:25 Dose: Not Given Lactobacillus Rhamnosus (Culturelle) 1 cap PO BID [facility] Last Admin: 08/28/19 09:18 Dose: 1 cap Ondansetron HCl (Zofran) 4 mg IV Q4H PRN PRN Reason: Nausea/Vomiting Pantoprazole Sodium (Protonix Iv) 40 mg IVPUSH Q24H [facility] Last Admin: 08/27/19 17:09 Dose: 40 mg Phenol (Phenaseptic Liquid) 0 ml MUCMEM Q2H PRN PRN Reason: Sore Throat Last Admin: 08/27/19 14:38 Dose: 1 spray Sodium Chloride (Saline Flush) 10 ml FLUSH ASDIRECTED PRN PRN Reason: Keep Vein Open Discontinued Medications Sodium Chloride (Normal Saline) 1,000 mls @ 150 mls/hr IV ASDIRECTED [facility] Last Admin: 08/26/19 12:16 Dose: 150 mls/hr Sodium Chloride (Normal Saline) 85 mls @ 3 mls/sec IV ONETIME ONE Stop: 08/26/19 12:21 Last Admin: 08/26/19 12:41 Dose: 3 mls/sec Sodium Chloride (Normal Saline) 1,000 mls @ 999 mls/hr IV .BOLUS ONE Stop: 08/26/19 14:08 Last Admin: 08/26/19 13:13 Dose: 999 mls/hr Piperacillin/Tazobactam/ (Dextrose 4.5 gm/ Premix) 100 mls @ 100 mls/hr IV ONETIME ONE Stop: 08/26/19 14:59 Last Admin: 08/26/19 13:58 Dose: 100 mls/hr Sodium Chloride (Normal Saline) 1,000 mls @ 125 mls/hr IV ASDIRECTED [facility] Last Admin: 08/28/19 01:31 Dose: 125 mls/hr Ceftriaxone Sodium 1 gm/ (Sodium Chloride) 50 mls @ 100 mls/hr IV Q24H [facility] Last Admin: 08/27/19 02:44 Dose: 100 mls/hr Aztreonam 1 gm/ Sodium (Chloride) 50 mls @ 100 mls/hr IV Q8H [facility] Last Admin: 08/28/19 08:40 Dose: 100 mls/hr Sodium Chloride (Normal Saline) 1,000 mls @ 500 mls/hr IV ASDIRECTED [facility] Stop: 08/27/19 12:31 Iopamidol (Isovue-300 (61%)) 150 ml IV ONETIME ONE Stop: 08/26/19 12:21 Last Admin: 08/26/19 12:41 Dose: 150 ml Lorazepam (Ativan) 1 mg IVPUSH ONETIME ONE Stop: 08/26/19 13:02 Last Admin: 08/26/19 13:09 Dose: 1 mg Methylprednisolone Sodium Succinate (Solu-Medrol) 40 mg IVPUSH ONETIME ONE Stop: 08/28/19 11:12 Last Admin: 08/28/19 12:14 Dose: 40 mg Ondansetron HCl (Zofran) 4 mg IVPUSH ONETIME ONE Stop: 08/26/19 11:57 Last Admin: 08/26/19 12:13 Dose: 4 mg Pantoprazole Sodium (Protonix Iv) 40 mg IVPUSH ONETIME ONE Stop: 08/26/19 11:57 Last Admin: 08/26/19 12:15 Dose: 40 mg Sodium Chloride (Saline Flush) 10 ml FLUSH ASDIRECTED PRN PRN Reason: Keep Vein Open Last Admin: 08/26/19 12:17 Dose: 10 ml Sodium Chloride (Saline Flush) 10 ml FLUSH ONETIME PRN PRN Reason: PER RADIOLOGY PROTOCOL Last Admin: 08/26/19 12:41 Dose: 10 ml - Exam General: Alert, Oriented, Cooperative, No Acute Distress Lungs: Clear to Auscultation, Normal Respiratory Effort GI/Abdominal Exam: Normal Bowel Sounds, Soft, Non-Tender Back Exam: Normal Inspection Extremities: Normal Inspection Skin: Warm, Dry, Intact Neurological: No New Focal Deficit Psy/Mental Status: Alert, Normal Affect, Normal Mood Consult PN Assessment/Plan (1) Small bowel obstruction SNOMED Code(s): 053238061 Code(s): K56.609 - UNSP INTESTNL OBST, UNSP TO PARTIAL VERSUS COMPLETE OBST Current Visit: Yes Problem List Initiated/Reviewed/Updated: Yes Plan: He continues to pass gas. He denies abdominal pain. No nausea. He complains of need pain which is being treated by Dr. Mejia. Will D/C NG and start clear liquid diet.
[2019-08-28] MEDS: Pantoprazole 40 MG Vial IVPUSH SCH (17:16)
[2019-08-29] MEDS: Ampicillin/Sulbactam Na 1.5 GM in Sodium Chloride 0.9% 50 ML IV SCH ×2 (03:57→10:02)
[2019-08-29] MEDS: Albuterol/Ipratropium 3.0-0.5 MG/3 ML Neb Soln NEB SCH ×2 (07:00→10:55)
[2019-08-29] MEDS: Acetaminophen 325 MG Tab PO PRN (07:46)
[2019-08-29] MEDS: HYDROmorphone 0.5 MG/0.5 ML Syringe IVPUSH PRN (07:46)
[2019-08-29] MEDS: Lactobacillus Rhamnosus GG (Probiotic) Cap PO SCH (08:33)
[2019-08-29] MEDS: Insulin Lispro 100 Unit/ML 3 ML KwikPen SUBCUT SCH (08:34)
--- NOTE | 2019-08-29 11:46 | PCM.CONSN ---
- General Info Date of Service: 08/29/19 Admission Dx/Problem (Free Text): Small bowel obstruction Subjective Update: Mr. Grimes has unfortunately experience left knee pain over the past 24 hours. He has a history of previous traumatic injury to the left knee as well as a history of gout. He is doing better as far as his bowel obstruction denies abdominal pain, nausea, or vomiting. Abdominal flat plate and upright x-ray obtained this morning shows no evidence of obstruction. NG output over the past few hours has been negligible. Functional Status: Reports: Pain Controlled, Tolerating Diet, Ambulating, Urinating - Review of Systems General: Reports: No Symptoms HEENT: Reports: No Symptoms Pulmonary: Reports: No Symptoms Cardiovascular: Reports: No Symptoms Gastrointestinal: Reports: No Symptoms Genitourinary: Reports: No Symptoms Musculoskeletal: Reports: Leg Pain (Knee. Feels better when he gets up and walks on it. ) Skin: Reports: No Symptoms Neurological: Reports: No Symptoms Psychiatric: Reports: No Symptoms - Patient Data Vitals - Most Recent: Last Vital Signs Temp 97.9 F 08/29/19 11:00 Pulse 89 08/29/19 11:00 Resp 18 08/29/19 11:00 BP 136/74 08/29/19 11:00 Pulse Ox 96 08/29/19 11:00 Weight - Most Recent: 232 lb 9.6 oz I&O - Last 24 Hours: Intake & Output 08/28/19 08/29/19 08/29/19 22:59 06:59 14:59 Intake Total 2025 1109 520 Output Total 850 350 200 Balance 1175 759 320 Lab Results Last 24 Hours: Laboratory Results - last 24 hr 08/29/19 Range/Units 04:20 Sodium 138 L (140-148) mmol/L Potassium 3.7 (3.6-5.2) mmol/L Chloride 105 (100-108) mmol/L Carbon Dioxide 22 (21-32) mmol/L Anion Gap 14.7 H (5.0-14.0) mmol/L BUN 12 (7-18) mg/dL Creatinine 1.0 (0.8-1.3) mg/dL Est Cr Clr Drug Dosing 77.24 mL/min Estimated GFR (MDRD) > 60 (>60) Glucose 148 H (74-106) mg/dL Calcium 8.2 L (8.5-10.1) mg/dL Aram Results Last 24 Hours: Microbiology 08/27/19 02:30 Aerobic Blood Culture - Preliminary Blood - Arm, Left NO GROWTH AFTER 2 DAYS Anaerobic Blood Culture - Preliminary NO GROWTH AFTER 2 DAYS 08/27/19 02:40 Aerobic Blood Culture - Preliminary Blood - Arm, Left NO GROWTH AFTER 2 DAYS Anaerobic Blood Culture - Preliminary NO GROWTH AFTER 2 DAYS Med Orders - Current: Current Medications Acetaminophen (Tylenol) 650 mg PO Q4H PRN PRN Reason: Fever Last Admin: 08/29/19 07:46 Dose: 650 mg Albuterol (Proventil Neb Soln) 2.5 mg NEB Q4H PRN PRN Reason: Dyspnea Albuterol/Ipratropium (Duoneb 3.0-0.5 Mg/3 Ml) 3 ml NEB Q4H PRN PRN Reason: Wheezing Albuterol/Ipratropium (Duoneb 3.0-0.5 Mg/3 Ml) 3 ml NEB QIDRT [facility] Last Admin: 08/29/19 10:55 Dose: 3 ml Dextrose (Glutose 15) 15 gm PO ONETIME PRN PRN Reason: Hypoglycemia Dextrose/Water (Dextrose 50% In Water) 50 ml IV ONETIME PRN PRN Reason: Hypoglycemia Hydromorphone HCl (Dilaudid) 0.5 mg IVPUSH Q2H PRN PRN Reason: Pain Last Admin: 08/29/19 07:46 Dose: 0.5 mg Ampicillin Sodium/Sulbactam (Sodium 1.5 gm/ Sodium Chloride) 50 mls @ 100 mls/ hr IV Q6HR [facility] Last Admin: 08/29/19 10:02 Dose: 100 mls/hr Insulin Human Lispro (Humalog) 0 unit SUBCUT QIDACANDBED [facility]; Protocol Last Admin: 08/29/19 08:34 Dose: Not Given Lactobacillus Rhamnosus (Culturelle) 1 cap PO BID [facility] Last Admin: 08/29/19 08:33 Dose: 1 cap Ondansetron HCl (Zofran) 4 mg IV Q4H PRN PRN Reason: Nausea/Vomiting Last Admin: 08/29/19 04:23 Dose: 4 mg Pantoprazole Sodium (Protonix) 40 mg PO Q24H [facility] Phenol (Phenaseptic Liquid) 0 ml MUCMEM Q2H PRN PRN Reason: Sore Throat Last Admin: 08/27/19 14:38 Dose: 1 spray Sodium Chloride (Saline Flush) 10 ml FLUSH ASDIRECTED PRN PRN Reason: Keep Vein Open Discontinued Medications Sodium Chloride (Normal Saline) 1,000 mls @ 150 mls/hr IV ASDIRECTED [facility] Last Admin: 08/26/19 12:16 Dose: 150 mls/hr Sodium Chloride (Normal Saline) 85 mls @ 3 mls/sec IV ONETIME ONE Stop: 08/26/19 12:21 Last Admin: 08/26/19 12:41 Dose: 3 mls/sec Sodium Chloride (Normal Saline) 1,000 mls @ 999 mls/hr IV .BOLUS ONE Stop: 08/26/19 14:08 Last Admin: 08/26/19 13:13 Dose: 999 mls/hr Piperacillin/Tazobactam/ (Dextrose 4.5 gm/ Premix) 100 mls @ 100 mls/hr IV ONETIME ONE Stop: 08/26/19 14:59 Last Admin: 08/26/19 13:58 Dose: 100 mls/hr Sodium Chloride (Normal Saline) 1,000 mls @ 125 mls/hr IV ASDIRECTED [facility] Last Admin: 08/28/19 01:31 Dose: 125 mls/hr Ceftriaxone Sodium 1 gm/ (Sodium Chloride) 50 mls @ 100 mls/hr IV Q24H [facility] Last Admin: 08/27/19 02:44 Dose: 100 mls/hr Aztreonam 1 gm/ Sodium (Chloride) 50 mls @ 100 mls/hr IV Q8H [facility] Last Admin: 08/28/19 08:40 Dose: 100 mls/hr Sodium Chloride (Normal Saline) 1,000 mls @ 500 mls/hr IV ASDIRECTED [facility] Stop: 08/27/19 12:31 Sodium Chloride (Normal Saline) 1,000 mls @ 75 mls/hr IV ASDIRECTED [facility] Iopamidol (Isovue-300 (61%)) 150 ml IV ONETIME ONE Stop: 08/26/19 12:21 Last Admin: 08/26/19 12:41 Dose: 150 ml Lorazepam (Ativan) 1 mg IVPUSH ONETIME ONE Stop: 08/26/19 13:02 Last Admin: 08/26/19 13:09 Dose: 1 mg Methylprednisolone Sodium Succinate (Solu-Medrol) 40 mg IVPUSH ONETIME ONE Stop: 08/28/19 11:12 Last Admin: 08/28/19 12:14 Dose: 40 mg Ondansetron HCl (Zofran) 4 mg IVPUSH ONETIME ONE Stop: 08/26/19 11:57 Last Admin: 08/26/19 12:13 Dose: 4 mg Pantoprazole Sodium (Protonix Iv) 40 mg IVPUSH ONETIME ONE Stop: 08/26/19 11:57 Last Admin: 08/26/19 12:15 Dose: 40 mg Pantoprazole Sodium (Protonix Iv) 40 mg IVPUSH Q24H [facility] Last Admin: 08/28/19 17:16 Dose: 40 mg Sodium Chloride (Saline Flush) 10 ml FLUSH ASDIRECTED PRN PRN Reason: Keep Vein Open Last Admin: 08/26/19 12:17 Dose: 10 ml Sodium Chloride (Saline Flush) 10 ml FLUSH ONETIME PRN PRN Reason: PER RADIOLOGY PROTOCOL Last Admin: 08/26/19 12:41 Dose: 10 ml - Exam General: Alert, Oriented, Cooperative, No Acute Distress Lungs: Clear to Auscultation, Normal Respiratory Effort Cardiovascular: Regular Rate, Regular Rhythm GI/Abdominal Exam: Normal Bowel Sounds, Soft, Non-Tender, No Distention Back Exam: Normal Inspection Extremities: Normal Inspection Skin: Warm, Dry, Intact Neurological: No New Focal Deficit Psy/Mental Status: Alert, Normal Affect, Normal Mood Consult PN Assessment/Plan (1) Small bowel obstruction SNOMED Code(s): 174504606 Code(s): K56.609 - UNSP INTESTNL OBST, UNSP TO PARTIAL VERSUS COMPLETE OBST Current Visit: Yes Problem List Initiated/Reviewed/Updated: Yes My Orders Last 24 Hours: My Active Orders 08/28/19 12:21 NG [Nasogastric Orogastric Tube Removal] [OM.PC] Routine Plan: Doing well. Tolerated diet. OK with me if he is discharged [facility].
--- NOTE | 2019-08-29 13:07 | PCM.DCSUM1 ---
Discharge Summary - Hospital Course Brief History: 64-year-old male with history of controlled type 2 diabetes mellitus and left knee osteoarthritis who presented with abdominal pain, nausea and vomiting. He was admitted for management of a small bowel obstruction. Diagnosis: Stroke: No - Discharge Data Discharge Date: 08/29/19 Discharge Disposition: Home, Self-Care 01 Condition: Good - Referral to Home Health Primary Care Physician: PCP None - Discharge Diagnosis/Problem(s) (1) Small bowel obstruction SNOMED Code(s): 103195206 ICD Code: K56.609 - UNSP INTESTNL OBST, UNSP TO PARTIAL VERSUS COMPLETE OBST Status: Acute Current Visit: Yes (2) Osteoarthritis of left knee SNOMED Code(s): 488930048632630 ICD Code: M17.12 - UNILATERAL PRIMARY OSTEOARTHRITIS, LEFT KNEE Status: Chronic Current Visit: Yes Qualifiers: Osteoarthritis type: post-traumatic Qualified Code(s): M17.32 - Unilateral post-traumatic osteoarthritis, left knee (3) Diabetes mellitus type II, controlled SNOMED Code(s): 50470168, 794160722 ICD Code: E11.9 - TYPE 2 DIABETES MELLITUS WITHOUT COMPLICATIONS Status: Chronic Current Visit: Yes Qualifiers: Diabetes mellitus termination clerk insulin use: without termination clerk use Diabetes mellitus complication status: without complication Qualified Code(s): E11.9 - Type 2 diabetes mellitus without complications - Patient Summary/Data Consults: Consultations 08/26/19 16:04 Consult to Physician [CONS] Routine Consulting Provider: Dash Butler Call Completed to Consulting Physician: Yes Reason for Consult: SBO Hospital Course: Robert presented to the emergency room with upper abdominal pain, nausea and vomiting. Workup in the emergency room revealed a white blood cell count of about 16,[address] scan suggested a small bowel obstruction with the transition point in the right lower abdomen. Patient was admitted for nonsurgical management of a small bowel obstruction. Exact cause for the obstruction was not clear as the patient had never had abdominal surgery in the past. There is no definite evidence for infection on the CT scan but he did have leukocytosis and fever. He did receive a dose of antibiotics in the emergency room but initially antibiotics were not continued. The next day his white blood cell count remained elevated and he continued to have fever so antibiotics were initiated. Over the next several days his white blood cell count trended down and normalized. His abdominal pain has resolved. Serial x- rays did show improvement. Early in the hospital stay there was concern that he may have a malignancy or some other cause leading to the obstruction and that an exploratory laparotomy may be diagnostic and therapeutic. The patient declined having surgical intervention. Unfortunately he did improve throughout the hospital stay. The exact cause for his obstruction is not entirely clear but an infection could be considered. He has a normal white blood cell count and has not had any fever since antibiotics were initiated. He is passing gas and feeling well from an abdominal pain standpoint. He has not had any nausea or vomiting and has tolerated regular diet. Her plan is to continue antibiotics for an additional 5 days treating this like it's diverticulitis. As mentioned before, we did not see definitive evidence for infection on the CT scan. He is doing well and feels safe at home at this time. Also encountered during the hospital stay was acute on chronic left knee pain. Patient did receive a dose of IV steroids the day before discharge. He feels that his best treatment plan will include increasing his activity which he would prefer to do at home. I believe he is safe for discharge at this time and will be discharged home. [facility] - Patient Instructions Diet: Diabetic Diet Activity: As Tolerated Driving: May Drive Today Showering/Bathing: May Shower Notify Provider of: Fever, Increased Pain, Nausea and/or Vomiting Other/Special Instructions: 1. You were in the hospital for management of a small bowel obstruction that we suspect was caused by an infection in the colon on the right side of your abdomen. Your condition has been improving with supportive cares and antibiotic therapy. I do recommend additional antibiotic therapy with Augmentin. You should take one tablet twice daily with food for 5 more days. Your next dose will be due tonight. 2. Follow up as scheduled with the DC or sooner if your condition worsens or does not continue to improve. - Discharge Plan *PRESCRIPTION DRUG MONITORING PROGRAM REVIEWED*: Not Applicable *COPY OF PRESCRIPTION DRUG MONITORING REPORT IN PATIENT NELLIE: Not Applicable Prescriptions/Med Rec: Amoxicillin/Clavulanate K [Augmentin 875-125 MG] 1 tab PO BID #10 tablet Home Medications: Home Meds Allopurinol [Zyloprim] 100 mg PO DAILY 08/26/19 [History] Levothyroxine 112 mcg PO ACBREAKFAST 08/26/19 [History] Lisinopril 5 mg PO DAILY 08/26/19 [History] metFORMIN [Glucophage] 500 mg PO BIDMEALS 08/26/19 [History] Amoxicillin/Clavulanate K [Augmentin 875-125 MG] 1 tab PO BID #10 tablet [Rx] Oxygen Therapy Mode: Room Air Patient Handouts: Small Bowel Obstruction, [id number] Referrals: PCP,None [Primary Care Provider] - (Dr. Hoover's nurse with call you with an appointment time. Your discharge summary was faxed to facility.) - Discharge Summary/Plan Comment DC Time >30 min.: No - Patient Data Vitals - Most Recent: Last Vital Signs Temp 36.6 C 08/29/19 11:00 Pulse 89 08/29/19 11:00 Resp 18 08/29/19 11:00 BP 136/74 08/29/19 11:00 Pulse Ox 96 08/29/19 11:00 Weight - Most Recent: 105.506 kg I&O - Last 24 hours: Intake & Output 08/28/19 08/29/19 08/29/19 22:59 06:59 14:59 Intake Total 2025 1109 520 Output Total 850 350 200 Balance 1175 759 320 Lab Results - Last 24 hrs: Laboratory Results - last 24 hr 08/29/19 Range/Units 04:20 Sodium 138 L (140-148) mmol/L Potassium 3.7 (3.6-5.2) mmol/L Chloride 105 (100-108) mmol/L Carbon Dioxide 22 (21-32) mmol/L Anion Gap 14.7 H (5.0-14.0) mmol/L BUN 12 (7-18) mg/dL Creatinine 1.0 (0.8-1.3) mg/dL Est Cr Clr Drug Dosing 77.24 mL/min Estimated GFR (MDRD) > 60 (>60) Glucose 148 H (74-106) mg/dL Calcium 8.2 L (8.5-10.1) mg/dL [facility] Results - Last 24 hrs: Microbiology 08/27/19 02:30 Aerobic Blood Culture - Preliminary Blood - Arm, Left NO GROWTH AFTER 2 DAYS Anaerobic Blood Culture - Preliminary NO GROWTH AFTER 2 DAYS 08/27/19 02:40 Aerobic Blood Culture - Preliminary Blood - Arm, Left NO GROWTH AFTER 2 DAYS Anaerobic Blood Culture - Preliminary NO GROWTH AFTER 2 DAYS Med Orders - Current: Current Medications Acetaminophen (Tylenol) 650 mg PO Q4H PRN PRN Reason: Fever Last Admin: 08/29/19 07:46 Dose: 650 mg Albuterol (Proventil Neb Soln) 2.5 mg NEB Q4H PRN PRN Reason: Dyspnea Albuterol/Ipratropium (Duoneb 3.0-0.5 Mg/3 Ml) 3 ml NEB Q4H PRN PRN Reason: Wheezing Albuterol/Ipratropium (Duoneb 3.0-0.5 Mg/3 Ml) 3 ml NEB QIDRT [facility] Last Admin: 08/29/19 10:55 Dose: 3 ml Dextrose (Glutose 15) 15 gm PO ONETIME PRN PRN Reason: Hypoglycemia Dextrose/Water (Dextrose 50% In Water) 50 ml IV ONETIME PRN PRN Reason: Hypoglycemia Hydromorphone HCl (Dilaudid) 0.5 mg IVPUSH Q2H PRN PRN Reason: Pain Last Admin: 08/29/19 07:46 Dose: 0.5 mg Ampicillin Sodium/Sulbactam (Sodium 1.5 gm/ Sodium Chloride) 50 mls @ 100 mls/ hr IV Q6HR [facility] Last Admin: 08/29/19 10:02 Dose: 100 mls/hr Insulin Human Lispro (Humalog) 0 unit SUBCUT QIDACANDBED [facility]; Protocol Last Admin: 08/29/19 08:34 Dose: Not Given Lactobacillus Rhamnosus (Culturelle) 1 cap PO BID [facility] Last Admin: 08/29/19 08:33 Dose: 1 cap Ondansetron HCl (Zofran) 4 mg IV Q4H PRN PRN Reason: Nausea/Vomiting Last Admin: 08/29/19 04:23 Dose: 4 mg Pantoprazole Sodium (Protonix) 40 mg PO Q24H [facility] Phenol (Phenaseptic Liquid) 0 ml MUCMEM Q2H PRN PRN Reason: Sore Throat Last Admin: 08/27/19 14:38 Dose: 1 spray Sodium Chloride (Saline Flush) 10 ml FLUSH ASDIRECTED PRN PRN Reason: Keep Vein Open Discontinued Medications Sodium Chloride (Normal Saline) 1,000 mls @ 150 mls/hr IV ASDIRECTED [facility] Last Admin: 08/26/19 12:16 Dose: 150 mls/hr Sodium Chloride (Normal Saline) 85 mls @ 3 mls/sec IV ONETIME ONE Stop: 08/26/19 12:21 Last Admin: 08/26/19 12:41 Dose: 3 mls/sec Sodium Chloride (Normal Saline) 1,000 mls @ 999 mls/hr IV .BOLUS ONE Stop: 08/26/19 14:08 Last Admin: 08/26/19 13:13 Dose: 999 mls/hr Piperacillin/Tazobactam/ (Dextrose 4.5 gm/ Premix) 100 mls @ 100 mls/hr IV ONETIME ONE Stop: 08/26/19 14:59 Last Admin: 08/26/19 13:58 Dose: 100 mls/hr Sodium Chloride (Normal Saline) 1,000 mls @ 125 mls/hr IV ASDIRECTED [facility] Last Admin: 08/28/19 01:31 Dose: 125 mls/hr Ceftriaxone Sodium 1 gm/ (Sodium Chloride) 50 mls @ 100 mls/hr IV Q24H [facility] Last Admin: 08/27/19 02:44 Dose: 100 mls/hr Aztreonam 1 gm/ Sodium (Chloride) 50 mls @ 100 mls/hr IV Q8H [facility] Last Admin: 08/28/19 08:40 Dose: 100 mls/hr Sodium Chloride (Normal Saline) 1,000 mls @ 500 mls/hr IV ASDIRECTED [facility] Stop: 08/27/19 12:31 Sodium Chloride (Normal Saline) 1,000 mls @ 75 mls/hr IV ASDIRECTED [facility] Iopamidol (Isovue-300 (61%)) 150 ml IV ONETIME ONE Stop: 08/26/19 12:21 Last Admin: 08/26/19 12:41 Dose: 150 ml Lorazepam (Ativan) 1 mg IVPUSH ONETIME ONE Stop: 08/26/19 13:02 Last Admin: 08/26/19 13:09 Dose: 1 mg Methylprednisolone Sodium Succinate (Solu-Medrol) 40 mg IVPUSH ONETIME ONE Stop: 08/28/19 11:12 Last Admin: 08/28/19 12:14 Dose: 40 mg Ondansetron HCl (Zofran) 4 mg IVPUSH ONETIME ONE Stop: 08/26/19 11:57 Last Admin: 08/26/19 12:13 Dose: 4 mg Pantoprazole Sodium (Protonix Iv) 40 mg IVPUSH ONETIME ONE Stop: 08/26/19 11:57 Last Admin: 08/26/19 12:15 Dose: 40 mg Pantoprazole Sodium (Protonix Iv) 40 mg IVPUSH Q24H [facility] Last Admin: 08/28/19 17:16 Dose: 40 mg Sodium Chloride (Saline Flush) 10 ml FLUSH ASDIRECTED PRN PRN Reason: Keep Vein Open Last Admin: 08/26/19 12:17 Dose: 10 ml Sodium Chloride (Saline Flush) 10 ml FLUSH ONETIME PRN PRN Reason: PER RADIOLOGY PROTOCOL Last Admin: 08/26/19 12:41 Dose: 10 ml - Exam Quality Assessment: Denies: Supplemental Oxygen General: Reports: Alert, Oriented, Cooperative, No Acute Distress Lungs: Reports: Normal Respiratory Effort GI/Abdominal Exam: Soft, No Distention Extremities: No Pedal Edema Psy/Mental Status: Reports: Alert, Normal Affect *Q Meaningful Use (DIS) - VTE *Q VTE Pharmacological Contraindications *Q: Patient Scheduled Surgery
[2019-08-29] MEDS ORDERED: Pantoprazole 40 MG Tab.CR PO SCH (16:00)
== END 2019-08-29 13:58 | disposition home or self-care (01) | DRG 390 ==
LOC: JP.ED 11:51 → JP.2SS 15:02
PROVIDERS: ADMIT Hospitalist; ATTEND Hospitalist
PROC: 0D9670Z Drainage of Stomach with Drainage Device, Via Natural or Artificial Opening (ICD-10-PCS; principal; 2019-08-26)
DX: K56.609 Unspecified intestinal obstruction, unspecified as to partial versus complete obstruction (principal); R11.2 Nausea with vomiting, unspecified; R07.89 Other chest pain; E11.9 Type 2 diabetes mellitus without complications; M17.12 Unilateral primary osteoarthritis, left knee; G89.29 Other chronic pain; I10 Essential (primary) hypertension; H54.7 Unspecified visual loss; J45.909 Unspecified asthma, uncomplicated; F12.10 Cannabis abuse, uncomplicated; M10.9 Gout, unspecified; E03.9 Hypothyroidism, unspecified; E66.9 Obesity, unspecified; M54.9 Dorsalgia, unspecified; Z96.619 Presence of unspecified artificial shoulder joint; Z87.891 Personal history of nicotine dependence; Z79.899 Other long term (current) drug therapy; Z79.84 Long term (current) use of oral hypoglycemic drugs; Z68.33 Body mass index [BMI] 33.0-33.9, adult
CPT/HCPCS: 36415; 43752; 74177; 80053; 83605; 83690; 84145; 84484; 85025; 86140; 93005; 96361; 96365; 96375; 99285; C9113; J2060; J2405; J2543; J7030 ×3; Q9967; 71046; 74021; 80048; 81001; 82962; 83735; 84550; 85027; 87040; 93010; 94640; A9270-GY; J0287; J0696; J1170; J1815; J2920; J3490; J7050; J7620-GY